=== PATIENT | male | born 1950 | race Caucasian/White ===

== ENCOUNTER 2017-12-29 00:49 | Inpatient (IN) | payer BC, MEDICARE ==
[2017-12-29 02:00] LABS: #Eosinphils 0.1 thou/uL (0.0-0.7); #Lymphocytes 1.5 thou/uL (1.20-3.40); #Monocytes 0.9 thou/uL (0.11-0.59); #Neutrophils 7.3 thou/uL (1.40-6.50); %Basophils 0.1 % (0.0-1.0); %Eosinophils 0.8 % (0.0-10.0); %Lymphocytes 15.2 % (21.0-51.0); %Monocytes 8.9 % (0.0-10.0); Mean Corpuscular HGB CONC 34.7 g/dL (32.0-36.0); Mean Corpuscular Hemoglobin 31.4 pg (27.0-31.0); Mean Corpuscular Volume 90.4 fL (78.0-98.0); Mean Platelet Volume 5.6 fL (7.4-10.4); Platelet Count 317 thou/uL (130-400); RBC Distribution Width 14.5 % (11.5-14.5); Red Blood Cell (RBC) Count 3.17 mill/uL (4.70-6.10); White Blood Cell (WBC) Count 9.8 thou/uL (4.8-10.8)
[2017-12-29] MEDS ORDERED: Morphine 4 MG/ML VIAL ONE (02:12)
[2017-12-29] MEDS ORDERED: Ondansetron HCl/PF 4 MG/2 ML Vial ONE ×2 (02:12→04:32)
[2017-12-29 02:21] LABS: ALT (SGPT) 46 U/L (8-55); AST (SGOT) 33 U/L (5-34); Albumin 2.7 g/dL (3.4-4.8); Alkaline Phosphatase 178 U/L (40-150); Anion Gap 14 mmol/L (10-20); BUN (Urea Nitrogen) 17 mg/dL (8.4-25.7); Bilirubin, Total 0.5 mg/dL (0.2-1.2); CK (CPK) 17 U/L (30-200); Calc. Creatinine Clearance 0 mL/min (70-130); Calcium 8.9 mg/dL (7.8-10.44); Carbon Dioxide 26 mmol/L (23-31); Chloride 96 mmol/L (98-107); Estimated GFR-MDRD Greater than 90; Globulin 3.1 g/dL (2.4-3.5); Glucose 149 mg/dL (80-115); Lipase 18 U/L (8-78); Magnesium 1.4 mg/dL (1.6-2.6); Potassium 3.8 mmol/L (3.5-5.1); Protein, Total 5.8 g/dL (5.8-8.1); Sodium 132 mmol/L (136-145)
[2017-12-29 02:23] LABS: CKMB 1.8 ng/mL (0-6.6)
[2017-12-29] MEDS ORDERED: Magnesium Sulfate 2 GM in Sodium Chloride 0.9% 100 ML IVPB SCH (04:00)
[2017-12-29 04:19] LABS: Bilirubin Negative (Negative); Blood, Urine Negative (Negative); Clarity CLEAR (Clear); Glucose, Urine (Dipstick) 100 mg/dL (Negative); Leukocyte Negative (Negative); Nitrite Negative (Negative); Protein, Urine (Dipstick) Trace mg/dL (Neg-Trace); Specific Gravity, Urine 1.012 (1.002-1.036)
[2017-12-29 05:13] VITALS: BMI 22.3
--- NOTE | 2017-12-29 08:41 | RAD ---
CHEST 1 VIEW: HISTORY: A 67-year-old male with a history of weakness, vomiting, and fever. FINDINGS: Postop midline sternotomy and left PICC line in place. Minimal pleural and parenchymal opacity wright es in the right lower lobe and right costophrenic angle region. Minimal rotation to the right. The left chest appears clear. Atherosclerotic changes of the aorta with extensive tortuosity. Increased density in the retrocardiac region, this may, in part, represent ectatic aorta, but the possibility of a hiatal hernia or some other parenchymal process in the medial aspects of the right and left lowe r lobes might be considered as well. Followup PA and lateral chest suggested. IMPRESSION: Minimal pleural and parenchymal opacities in the right base with some blunting of the right costophre calin angle. Increased density to the retrocardiac region medially involving both the right and left r etrocardiac regions, nonspecific. Followup PA and lateral chest is recommended. If this cannot be p erformed, than a followup chest CT scan should probably be considered. Correlate with clinical findi ngs. CODE T POS: JEAN CLAUDE
[2017-12-29] MEDS ORDERED: Ondansetron HCl/PF 4 MG/2 ML Vial IVP PRN (10:40)
[2017-12-29] MEDS ORDERED: Ondansetron ODT 4 MG TAB PO PRN (10:41)
[2017-12-29] MEDS ORDERED: Acetaminophen 325 MG TAB PO PRN (10:41)
[2017-12-29] MEDS ORDERED: Dextrose 50% Abboject 50 ML SYRINGE IVP PRN (18:23)
[2017-12-29] MEDS ORDERED: Dextrose 5% in Water 1,000 ML IV PRN (18:23)
[2017-12-29] MEDS: Ondansetron HCl/PF 4 MG/2 ML Vial IVP PRN (18:34)
[2017-12-29] MEDS: Promethazine HCl 25 MG/ML VIAL SLOW IVP PRN (22:49)
[2017-12-30] MEDS: Ondansetron HCl/PF 4 MG/2 ML Vial IVP PRN ×2 (03:27→08:31)
[2017-12-30] MEDS: Promethazine HCl 25 MG/ML VIAL SLOW IVP PRN (05:17)
[2017-12-30] MEDS ORDERED: Prevnar 13-Val Conj/PF 0.5 ML SYRINGE IM ONE (09:00)
[2017-12-30] MEDS ORDERED: hydrALAZINE 20 MG/ML VIAL SLOW IVP PRN (09:31)
[2017-12-30 09:51] LABS: #Eosinphils 0.1 thou/uL (0.0-0.7); #Lymphocytes 1.7 thou/uL (1.20-3.40); #Monocytes 0.9 thou/uL (0.11-0.59); #Neutrophils 6.9 thou/uL (1.40-6.50); %Basophils 0.3 % (0.0-1.0); %Eosinophils 0.6 % (0.0-10.0); %Monocytes 9.3 % (0.0-10.0); %Neutrophils 71.8 % (42.0-75.0); Hemoglobin 10.5 g/dL (14.0-18.0); Mean Corpuscular HGB CONC 35.8 g/dL (32.0-36.0); Mean Corpuscular Volume 89.5 fL (78.0-98.0); Mean Platelet Volume 5.5 fL (7.4-10.4); Platelet Count 331 thou/uL (130-400); RBC Distribution Width 14.5 % (11.5-14.5); Red Blood Cell (RBC) Count 3.28 mill/uL (4.70-6.10); White Blood Cell (WBC) Count 9.6 thou/uL (4.8-10.8)
[2017-12-30] MEDS: Lorazepam 2 MG/ML VIAL SLOW IVP PRN ×2 (10:04→17:42)
[2017-12-30 10:09] LABS: Anion Gap 13 mmol/L (10-20); BUN (Urea Nitrogen) 13 mg/dL (8.4-25.7); Calc. Creatinine Clearance 150 mL/min (70-130); Calcium 9.2 mg/dL (7.8-10.44); Carbon Dioxide 28 mmol/L (23-31); Chloride 97 mmol/L (98-107); Estimated GFR-MDRD Greater than 90; Glucose 145 mg/dL (80-115); Potassium 3.6 mmol/L (3.5-5.1); Sodium 134 mmol/L (136-145)
[2017-12-30] MEDS ORDERED: Metoprolol Tartrate 5 MG/5 ML VIAL IVP SCH (10:15)
--- NOTE | 2017-12-30 12:05 | PRG ---
DATE OF SERVICE: 12/30/2017 SUBJECTIVE: The patient is continuing to have significant nausea and some retching. He is not havin g substantial improvement with the current antiemetic medications. OBJECTIVE: VITAL SIGNS: Temperature is 97.7, pulse 82, respirations 20, O2 sat 96% on room air, BP ranging from 158/88 to 184/117. GENERAL APPEARANCE: The patient is awake and alert. He appears slightly erythematous and flushed. He is conversant. HEENT: Pupils are slightly constricted. He has no OP lesions. He does have a bit of white plaquing on the tongue. HEART: Regular rate and rhythm without murmurs, gallops, or rubs. There is a left neck spit stoma t hat is full of some air. LUNGS: Clear bilaterally. ABDOMEN: Reveals healing incisional scars with intact NG tube and G-tube, and these sites look gener ally healthy. There are some bowel sounds present. EXTREMITIES: Warm and dry with trace edema, but palpable pulses. LABORATORY DATA: Blood sugars ranging from 124-146. IMPRESSION AND PLAN: 1. Nausea with retching. 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 Ultimately, had an esophagectomy with a left neck spit pouch and a G-tube and J-tube placed. The pat ient had numerous complications including a DVT of the right upper extremity, mediastinal abscess, ri ght empyema, requiring thoracotomy. He has had again multiple surgeries by [facility] and culminating in [place] with Dr. Laurent. Subsequent to that, the patient was trans ferred to [facility] for rehabilitation. He was apparently on vancomycin, meropenem, and myron afungin. The patient was brought back to the hospital here, because of some nausea and retching. Un til this point, he has not responded significantly to the antiemetic therapy. It was noted that the patient cannot take Reglan, because it causes some altered mental status. He has been using Zofran a nd Phenergan. The patient does report that he had a bowel movement as recently as yesterday, but non e since that time. His feeds were held last night, because he was having some abdominal distention a nd higher residuals. I have discussed the case with the patient, his , and his son-in-law, who h as some medical knowledge and understands the situation. I have spoken to Dr. Plascencia, who is the surgeon covering for Dr. Laurent. It was very clear that she is only covering but does not perform ma ny of these surgeries herself, but was very helpful in helping establish the patient's background inf ormation. She, ultimately, agreed with the current plan of obtaining a CT chest, abdomen, and pelvis . She asked that to reach back out to her once the results of that were known. She indicated that i t is possible that Dr. Laurent might want to have the patient back in [place] and the family has made it very clear that any surgery that would be indicated would be performed in [place]. I believe that is a nonissue as it is unlikely anyone here would want to get involved in such a complex surgical case. So, for now, we will continue with some IV fluids and hold the feeds and get the CT chest, abdomen, and pelvis. 2. Possible pneumonia. The patient had some hazy infiltrates in the retrocardiac space on his initi al x-ray. He has had significant thoracic issues including empyema in the past related to this. The refore, there may be some residual scar tissue. Hopefully, the CT will help establish that for us. 3. History of right upper extremity deep vein thrombosis. The patient was reportedly on some Loveno x. This was related to a PICC line in the right upper extremity. They did indicate that he was actu ally on Eliquis prior to all of these complications related to his surgery and that it was there more for a cardiac-related issue. For now, I am going to hold off on any anticoagulation until we can ge t some results of these imaging studies to ensure that there is not a leak or problem that might requ joseph surgical intervention. 4. History of severe coronary artery disease with multiple interventions and stents. Patient was pr eviously on Coreg and Eliquis. Presently, I am concerned that we do not know what is going on with t he gut, so I am trying to avoid giving any medications intraorally until we know more. He may need s ome IV beta velma. 5. History of diabetes mellitus. Blood sugars have been very well controlled. 6. Mild hyponatremia. Continue to monitor. 7. ID. The patient was on vancomycin, meropenem, and micafungin for apparent sepsis and possibly re lated to some mediastinitis. It is not clear at this point. Dr. Plascencia has offered to fax us th e records from [place] as soon as she can make that happen and hopefully that will help us clarify josse e of this information.
--- NOTE | 2017-12-30 12:42 | RAD ---
SUPINE ABDOMEN: INDICATION: Abdominal distention. Post esophagectomy. FINDINGS: Bowel gas pattern unremarkable. There is scattered stool and gas in the colon. No evidence of small bowel dilatation or obstruction. Evidence of a J tube and other catheters overlies the left abdomen . IMPRESSION: Unremarkable bowel gas pattern. POS: [facility]
[2017-12-30] MEDS ORDERED: ISOVUE-370 76%-LOCM 1 ML ONE (13:41)
--- NOTE | 2017-12-30 15:43 | CT ---
CT CHEST WITH IV CONTRAST CT ABDOMEN AND PELVIS WITH IV CONTRAST: 12/30/17 Multiple axial tomograms obtained through the chest, abdomen and pelvis with IV enhancement. INDICATIONS: Recent esophagectomy. Nausea. No comparison studies. CT CHEST: There are bilateral pleural effusions slightly larger on the right with bibasilar atelectasis. Medias tinum shows evidence of esophagectomy. Nonspecific mediastinal lymph nodes. proximal pulmonary arteri es are opacified with no proximal pulmonary embolus. Thoracic aorta unremarkable with mild atheroscle rotic change. Air seen in anterior chest wall on the left with the sternoclavicular joint may represe nt changes from recent central line puncture. Small fluid collection at this site may also represent small hematoma from recent punctures. IMPRESSION: 1. Bilateral pleural effusions, slightly larger on the right with bibasilar atelectasis. 2. Air and fluid collection anterior chest wall on the left at the sternoclavicular junction pro bably represents changes from prior puncture for central line. There is a left sided PICC line in pl [place]. The tip of this PICC line traverses the SVC and appears to project into the azygos vein. CT ABDOMEN AND PELVIS: Abnormal density in the region of the EG junction consistent with the history of esophagectomy. No gr oss evidence of fluid, hematoma, or abscess. There is a PEG tube in place with the bulb located withi n the gastric fundus. Liver, spleen and pancreas unremarkable. Tiny gallstone in neck of the gallbladder. Small bowel loops are normal caliber. There is a J-tube in place entering via the left abdomen. This bulb appears in adequate position within the jejunum. The kidneys are unremarkable with no hydronephrosis. Small renal cystic lesions. Urinary bladder is m ildly distended. Prostate mildly enlarged indenting the floor of the bladder. Aorta normal caliber. There is an abnormal density in the anterior abdominal wall musculature on the right in the region of the rectus abdominis muscle measuring up to 5 cm consistent with abdominal wall hematoma. IMPRESSION: 1. An anterior abdominal wall hematoma involving the abdominal wall musculature on the right zaire suring up to 5 cm. 2. PEG tube and J-tubes appear in adequate position. 3. Cholelithiasis. 4. No acute intra-abdominal process. POS: [facility]
--- NOTE | 2017-12-30 16:21 | PDOC.EVN ---
Event Note - Event Note Event Note: CT Chest, abdomen and pelvis is negative for leakage or other GI pathology. Discussed with patient's as he is sleeping soundly after the ativan today. He is afebrile and has a normal WBC. Will resume his enteral meds and plan on resuming feeds in the morning. Will not do bolus feeds yet as the reports that seem to trigger some of his symptoms. Will get our pediatric speech therapist involved. Continue the PRN ativan for now. Will stop the zofran and give the IV diflucan for what looks like some oral thrush. Possible that he has some sub -pharyngeal thrush, above the pouch. Unlikely, but that could be triggering some nausea.
[2017-12-30] MEDS ORDERED: Fluconazole In NaCl,Iso-Osm 100 MG in Admixture Fee 1 EACH IVPB SCH (17:15)
[2017-12-30] MEDS: Nystatin 500,000 UNITS/5 ML UDCUP SSW SCH ×2 (17:32→20:59)
[2017-12-30] MEDS: Furosemide 20 MG TAB PER TUBE SCH (20:55)
[2017-12-30] MEDS: Apixaban 5 MG TAB PER TUBE SCH (20:55)
[2017-12-30] MEDS: Carvedilol 25 MG TAB PER TUBE SCH (20:56)
[2017-12-30] MEDS ORDERED: Atorvastatin Calcium 40 MG TAB PER TUBE SCH (21:00)
[2017-12-31 04:25] LABS: #Eosinphils 0.2 thou/uL (0.0-0.7); #Lymphocytes 1.8 thou/uL (1.20-3.40); #Monocytes 0.9 thou/uL (0.11-0.59); #Neutrophils 5.2 thou/uL (1.40-6.50); %Basophils 0.5 % (0.0-1.0); %Eosinophils 1.9 % (0.0-10.0); %Lymphocytes 22.1 % (21.0-51.0); %Monocytes 11.1 % (0.0-10.0); %Neutrophils 64.4 % (42.0-75.0); Hemoglobin 9.4 g/dL (14.0-18.0); Mean Corpuscular HGB CONC 34.8 g/dL (32.0-36.0); Mean Corpuscular Hemoglobin 31.4 pg (27.0-31.0); Mean Corpuscular Volume 90.3 fL (78.0-98.0); Mean Platelet Volume 5.7 fL (7.4-10.4); Platelet Count 299 thou/uL (130-400); RBC Distribution Width 14.9 % (11.5-14.5)
[2017-12-31 04:50] LABS: Anion Gap 9 mmol/L (10-20); BUN (Urea Nitrogen) 11 mg/dL (8.4-25.7); Calc. Creatinine Clearance 162 mL/min (70-130); Calcium 8.7 mg/dL (7.8-10.44); Carbon Dioxide 31 mmol/L (23-31); Chloride 96 mmol/L (98-107); Estimated GFR-MDRD Greater than 90; Glucose 96 mg/dL (80-115); Potassium 3.3 mmol/L (3.5-5.1); Sodium 133 mmol/L (136-145)
[2017-12-31] MEDS: Fluconazole In NaCl,Iso-Osm 100 MG in Admixture Fee 1 EACH IVPB SCH (08:35)
[2017-12-31] MEDS: Nystatin 500,000 UNITS/5 ML UDCUP SSW SCH ×4 (08:38→20:14)
[2017-12-31] MEDS: Polyethylene Glycol 3350 17 GM Packet PER TUBE SCH (08:38)
[2017-12-31] MEDS: Carvedilol 25 MG TAB PER TUBE SCH ×2 (08:38→20:17)
[2017-12-31] MEDS: FLUoxetine HCl 20 MG CAP PER TUBE SCH (08:39)
[2017-12-31] MEDS: Furosemide 20 MG TAB PER TUBE SCH ×2 (08:39→20:14)
[2017-12-31] MEDS ORDERED: Fleet Enema 133 ML BOT PR PRN (08:53)
[2017-12-31] MEDS ORDERED: Potassium Chloride 40 MEQ in Premix Bag 1 BAG IVPB SCH (09:00)
[2017-12-31] MEDS: Pantoprazole 40 MG VIAL IVP SCH ×2 (09:11→20:14)
[2017-12-31] MEDS: Sodium Chloride 0.45% 1,000 ML IV SCH ×2 (09:15→23:41)
--- NOTE | 2017-12-31 09:17 | PDOC.PN ---
- Subjective Encounter Start Date: 12/31/17 Encounter Start Time: 09:00 Feels a little better today. Not nauseated, but "queezy". No BM - Objective Vital Signs & Weight: Vital Signs (12 hours) Temp Pulse Resp BP Pulse Ox 12/31/17 07:28 97.7 F 76 16 169/82 H 96 Weight Admit Weight 188 lb 4.8 oz Weight 188 lb 4.8 oz I&O: 12/30/17 12/31/17 01/01/18 06:59 06:59 06:59 Intake Total 730 Output Total 1200 Balance -470 Result Diagrams: 12/31/17 03:52 12/31/17 03:52 Additional Labs: Accuchecks 12/31/17 12/30/17 12/30/17 06:18 23:43 17:28 POC Glucose 98 121 H 115 H 12/30/17 11:31 POC Glucose 152 H Phys Exam - Physical Examination Constitutional: NAD Left neck esophageal "spit" stoma. Respiratory: no wheezing, no rales, no rhonchi, clear to auscultation bilateral Cardiovascular: RRR, no significant murmur, no rub Gastrointestinal: soft, non-tender, no distention, positive bowel sounds G and J tubes in place. Musculoskeletal: no edema Neurological: non-focal Dx/Plan (1) Nausea Code(s): R11.0 - NAUSEA Status: Acute (2) H/O esophagectomy Code(s): Z98.890 - OTHER SPECIFIED POSTPROCEDURAL STATES; Z90.49 - ACQUIRED ABSENCE OF OTHER SPECIFIED PARTS OF DIGESTIVE TRACT Status: Acute (3) Thrush Code(s): B37.0 - CANDIDAL STOMATITIS Status: Acute (4) Pleural effusion Code(s): J90 - PLEURAL EFFUSION, NOT ELSEWHERE CLASSIFIED Status: Acute (5) DVT (deep venous thrombosis) Code(s): I82.409 - ACUTE EMBOLISM AND THOMBOS UNSP DEEP VN UNSP LOWER EXTREMITY Status: Acute (6) Hypertension Code(s): I10 - ESSENTIAL (PRIMARY) HYPERTENSION Status: Acute (7) Diabetes Code(s): E11.9 - TYPE 2 DIABETES MELLITUS WITHOUT COMPLICATIONS Status: Acute (8) Hypokalemia Code(s): E87.6 - HYPOKALEMIA Status: Acute - Plan * Massively complicated history. Has had multiple surgeries culminating with esophagectomy with spit stoma in the neck, mediastinital abscess, polymicrobial empyema. Sent to rehab on J tube feeds. Developed nausea. Slightly better today. Continue with ativan at a lower dose so as not to sedate him as much. Hold feeds until he is a little better. Will consult nutrition to help resume the feeds. Will give him his usual miralax. If not helpful, use fleets enema. CT yesterday with no leakage or obstruction. Resumed PEG meds. Resumed the Eliquis for RUE DVT. Give some IVF. Replace potassium.
[2017-12-31] MEDS: Lorazepam 2 MG/ML VIAL SLOW IVP PRN ×3 (09:24→23:38)
--- NOTE | 2017-12-31 09:26 | HP ---
LOCAL PRIMARY CARE PHYSICIAN: Dr. Pola Asif. SURGEON: Local surgeon is over at [facility]. PRIMARY POWER SYSTEM ENGINEER: in the [place] area. CHIEF COMPLAINT: Nausea and vomiting. HISTORY OF PRESENT ILLNESS: Mr. Patten is a pleasant 67-year-old male with a complicated recent past medical history, who presents to the emergency department from [facility] for nausea without v omiting, but dry heaves for the last 24 hours or so, starting around 00:30. The patient was brought via EMS from [facility] to the emergency department. Only recent changes to his medicine regim en was a change from chronic tube feeds via a G-tube to bolus feeds about 2 days prior to admission. The patient has a recent surgical history that is complicated. He underwent a fundoplication-type hi atal hernia repair on 09/09/2017. He seemed to do well postoperatively on discharge, but on 10/13, christiano sanders developed a dehiscence and infection and had to be readmitted. They attempted laparoscopic repair x2 at [facility], and subsequently, transferred the patient to [place] to see a specialist in the se type of problems. At that point in time, he had some ischemia to the gastric body and underwent a partial gastrectomy and esophagectomy and was in [place], 10/20 to 10/24 for this procedure. He was subsequently transferred back to [facility] here in [place], 10/24-10/30, and worsened. He was subsequently life flighted on 10/30 to [place] for the gastrectomy procedure. Subsequently, t ransferred back to [facility] on 12/06/2017 on continuous tube feeds. He currently has an esop hagectomy with a spit pouch. He has a J-tube in place and a gastrostomy tube in place, has been havi ng normal bowel movements, and otherwise doing fairly well. He feels very nauseated, but obviously cannot vomit since there is no connection, but does have the d ry heaves associated with that. PAST MEDICAL HISTORY: 1. Gastroesophageal reflux disease. 2. 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 3. Coronary artery disease. 4. Hypertension 5. Hyperlipidemia. 6. New onset diabetes and has been on tube feeds. 7. Depression. PAST SURGICAL HISTORY: Include, 1. Coronary artery bypass grafting x3 vessels in 1998 and 2004. 2. Hernia repair as above and with repairs and esophagectomy. 3. PTCA with PCI and stent placement x3, last one 2-3 years ago. HOME MEDICATIONS: Have been reviewed. Please see the intake sheet. ALLERGIES: REGLAN. FAMILY HISTORY: Negative for clotting or bleeding disorder. No immune dysfunction. SOCIAL HISTORY: Negative for habits x3. He is currently a resident at [facility] getting reha bilitation. REVIEW OF SYSTEMS: A 10-point review of systems was performed and is negative for all systems except as stated as per HPI. PHYSICAL EXAMINATION: VITAL SIGNS: Temperature 98.3, pulse 83, blood pressure 161/109, respiratory rate 18, satting 99% on room air. GENERAL: He is awake. He is alert. He is oriented x3. He is chronic ill-appearing, thin white mal e, appears to be in no acute distress at present. During our interview, he did have a couple of epis odes of dry heaves. HEENT: Normocephalic, atraumatic. Pupils equal and reactive bilaterally. Mucous membranes moist. He has no visible lesion. No thrush. NECK: Supple, without lymphadenopathy, JVD, or thyromegaly. LUNGS: Clear. Good air movement. Symmetrical chest excursion. No prolonged expiratory phase. No wheezes, no rales, no rhonchi. Anterior chest, he does have a spit pouch present that appears to be clean, dry, and intact with some pink-tinged spit, but otherwise looks normal. ABDOMEN: Soft, it is nontender. He has got good bowel sounds in all 4 quadrants. The J-tube and G- tube sites are clean, dry, and intact. SKIN: Warm, moist, and well perfused. EXTREMITIES: Show no cyanosis or clubbing. Trace pedal edema. MUSCULOSKELETAL EXAM: Normal to inspection. Large joints appear normal. There is no evidence of in flammation or palpable effusion. NEUROLOGIC EXAM: Cranial nerves II-XII are grossly intact. He has no focal deficits. He has a norm al affect. He is at 5/5 strength in all 4 extremities and normal speech pattern. LABORATORY DATA: Sodium is 132, potassium 3.8, chloride 96, bicarbonate 26, BUN 17, creatinine 0.51, glucose of 149. Calcium was 8.9. Mag was low at 1.41 and replacement was ordered. Liver function fairly normal with an alkaline phosphatase barely elevated at 178. Total CK is low at 17. His CK-MB was normal at 1.8 and a troponin I was 0.020. Albumin is low at 2.7. CBC showed a white count of 9 .8, hemoglobin 10.5, hematocrit of 28.7, platelet count is 317,000, with a fairly normal differential . Urinalysis was negative. Chest x-ray showed no acute cardiopulmonary disease. ASSESSMENT AND PLAN: 1. Intractable nausea and vomiting, certainly could be secondary to change from continuous to bolus feeds. We will hold off on any imaging as it is not likely to be normal anyways. We will see how he does with the change. If he continues to have some problems or spikes a fever or increase his white count, then we would certainly get his CT scan at that point. Unfortunately, the patient's surgeon is not local, and should there be any complications, then likely we will have to transfer him back to [place]. 2. Gastroesophageal reflux disease. We will continue IV Protonix. 3. History of fungal infection. 4. Coronary artery disease. 5. Hypertension. We will continue his home medications. 6. Depression. We will continue his fluoxetine. 7. Diabetes mellitus. We will continue his regular medications and insulin sliding scale. 8. Hyperlipidemia. 9. Status post esophagectomy and partial gastrectomy as above.
[2017-12-31] MEDS: Apixaban 5 MG TAB PER TUBE SCH (20:14)
[2018-01-01 05:11] LABS: #Eosinphils 0.1 thou/uL (0.0-0.7); #Lymphocytes 2.1 thou/uL (1.20-3.40); #Neutrophils 6.4 thou/uL (1.40-6.50); %Basophils 0.4 % (0.0-1.0); %Eosinophils 1.1 % (0.0-10.0); %Lymphocytes 21.4 % (21.0-51.0); %Monocytes 10.3 % (0.0-10.0); %Neutrophils 66.8 % (42.0-75.0); Hemoglobin 9.6 g/dL (14.0-18.0); Mean Corpuscular HGB CONC 34.5 g/dL (32.0-36.0); Mean Corpuscular Volume 89.8 fL (78.0-98.0); Mean Platelet Volume 5.5 fL (7.4-10.4); Platelet Count 308 thou/uL (130-400); RBC Distribution Width 14.6 % (11.5-14.5); Red Blood Cell (RBC) Count 3.08 mill/uL (4.70-6.10); White Blood Cell (WBC) Count 9.6 thou/uL (4.8-10.8)
[2018-01-01 05:22] LABS: Anion Gap 11 mmol/L (10-20); BUN (Urea Nitrogen) 9 mg/dL (8.4-25.7); Calc. Creatinine Clearance 159 mL/min (70-130); Calcium 8.6 mg/dL (7.8-10.44); Carbon Dioxide 29 mmol/L (23-31); Chloride 93 mmol/L (98-107); Estimated GFR-MDRD Greater than 90; Glucose 84 mg/dL (80-115); Potassium 3.2 mmol/L (3.5-5.1); Sodium 130 mmol/L (136-145)
[2018-01-01] MEDS ORDERED: Potassium Chloride 40 MEQ in Premix Bag 1 BAG IVPB SCH (08:30)
[2018-01-01] MEDS: Pantoprazole 40 MG VIAL IVP SCH ×2 (08:39→20:56)
[2018-01-01] MEDS: Furosemide 20 MG TAB PER TUBE SCH ×2 (08:39→20:55)
[2018-01-01] MEDS: FLUoxetine HCl 20 MG CAP PER TUBE SCH (08:39)
[2018-01-01] MEDS: Carvedilol 25 MG TAB PER TUBE SCH ×2 (08:41→20:55)
[2018-01-01] MEDS: Fluconazole In NaCl,Iso-Osm 100 MG in Admixture Fee 1 EACH IVPB SCH (09:01)
[2018-01-01] MEDS: Nystatin 500,000 UNITS/5 ML UDCUP SSW SCH ×4 (09:11→20:55)
[2018-01-01] MEDS: Polyethylene Glycol 3350 17 GM Packet PER TUBE SCH (10:24)
[2018-01-01] MEDS: Lorazepam 2 MG/ML VIAL SLOW IVP PRN (10:32)
--- NOTE | 2018-01-01 12:57 | PQF ---
DATE: 01-01-18 ATTN: DR. JULIAN MARINELLI Please exercise your independent, professional judgment in responding to the clarification form. Clinical indicators are provided on the bottom of this form for your review Please check appropriate box(s) to clarify if the following diagnosis has been ruled in or ruled out: PNEUMONIA [ ] Ruled in diagnosis [ ] Continue to treat [ ] Resolved [ x] Rule out diagnosis [ ] Other diagnosis [ ] Unable to determine In addition, please specify: Present on Admission (POA): [ ] Yes [ ] No [ ] Unable to determine For continuity of documentation, please document condition throughout progress notes and discharge summary. Thank You. CLINICAL INDICATORS - SIGNS / SYMPTOMS / LABS ER DIAGNOSIS: INTRACTABLE NAUSEA AND VOMITING, RIGHT MIDDLE AND LOWER LOBE PNEUMONIA PN DR. JULIAN MARINELLI 12-30-17: POSSIBLE PNEUMONIA. PN DR. JULIAN MARINELLI 12-31-17: ACUTE PLEURAL EFFUSION RISK FACTORS: ER: COUGHING UP, HX OF SEVERE SEPSIS, DM 2, HYPERLIPIDEMIA, RALES PRESENT, RHONCHI PRESENT TREATMENTS: MAR: IVF CT ABDOMEN/CHEST/PELVIS 12-30-17 (This form is maintained as a part of the permanent medical record) 2014 [email or web address]. All Rights Reserved [email or web address] [email or web address] Office: [phone] [facility] CENTERHugo
[2018-01-01] MEDS: Promethazine HCl 25 MG/ML VIAL SLOW IVP PRN (13:16)
[2018-01-01] MEDS: Sodium Chloride 0.45% 1,000 ML IV SCH (14:38)
[2018-01-01] MEDS: Potassium Chloride 20 MEQ in Premix Bag 1 BAG IVPB SCH ×2 (15:22→17:17)
[2018-01-01] MEDS: Apixaban 5 MG TAB PER TUBE SCH (20:55)
[2018-01-02] MEDS: Sodium Chloride 0.45% 1,000 ML IV SCH ×4 (02:09→21:17)
[2018-01-02 05:58] LABS: #Eosinphils 0.1 thou/uL (0.0-0.7); #Lymphocytes 1.9 thou/uL (1.20-3.40); #Monocytes 1.1 thou/uL (0.11-0.59); #Neutrophils 8.2 thou/uL (1.40-6.50); %Basophils 0.1 % (0.0-1.0); %Eosinophils 1.2 % (0.0-10.0); %Lymphocytes 16.9 % (21.0-51.0); %Monocytes 9.7 % (0.0-10.0); %Neutrophils 72.1 % (42.0-75.0); Hemoglobin 10.5 g/dL (14.0-18.0); Mean Corpuscular HGB CONC 34.4 g/dL (32.0-36.0); Mean Corpuscular Hemoglobin 30.5 pg (27.0-31.0); Mean Corpuscular Volume 88.5 fL (78.0-98.0); Mean Platelet Volume 5.6 fL (7.4-10.4); Platelet Count 339 thou/uL (130-400); RBC Distribution Width 14.7 % (11.5-14.5); Red Blood Cell (RBC) Count 3.46 mill/uL (4.70-6.10); White Blood Cell (WBC) Count 11.3 thou/uL (4.8-10.8)
[2018-01-02 06:10] LABS: Anion Gap 11 mmol/L (10-20); BUN (Urea Nitrogen) 12 mg/dL (8.4-25.7); Calc. Creatinine Clearance 138 mL/min (70-130); Calcium 8.5 mg/dL (7.8-10.44); Carbon Dioxide 29 mmol/L (23-31); Chloride 91 mmol/L (98-107); Estimated GFR-MDRD Greater than 90; Glucose 179 mg/dL (80-115); Potassium 3.1 mmol/L (3.5-5.1); Sodium 128 mmol/L (136-145)
--- NOTE | 2018-01-02 08:44 | PRG ---
DATE OF SERVICE: 01/02/2018. SUBJECTIVE: The patient reports this morning that he feels pressure in his stomach and stating "feel s like my stomach is going to explode." He feels like the continuous feeds were advanced too quickly . The nurse was able to draw for about 60 mL of residual. He reports feeling better after that. He also reports that he is breathing perfectly fine, has no other specific complaints, was borderline n auseated, but again feels better after the residuals removed. OBJECTIVE: VITAL SIGNS: T-max 98.0, pulse 72, respirations 20, O2 sat 96%, blood pressure is 166/91. GENERAL APPEARANCE: Age appropriate male. He is in no distress. He continues to look generally mis erable, which is essentially the way he has appeared since admission. He has a bit of a red flushed face. HEART: Regular, without murmurs. LUNGS: Clear with diminished breath sounds at both bases. Minimal scattered rales at the bases. ABDOMEN: Soft, nontender, nondistended. There are positive bowel sounds. G-tube are in place. EXTREMITIES: Warm and dry without edema. Left upper extremity PICC line looks to be in good conditi on with no erythema. There is a left lower neck, upper chest, spit stoma which appears healthy. LABORATORY DATA: White count 11.3, hemoglobin 10.5, platelets 339. Sodium 128, potassium 3.1, chlor nathan 91, BUN is 12, creatinine 0.61, glucose from 93 up to 179. IMPRESSION AND PLAN: 1. Intractable nausea. This appeared to be related to the bolus feeds. He has had workup that did not reveal any significant pathology, the GI tract or abdomen. We have attempted to reinitiate his f eeds. He was getting continuous feedings with the ramp up; however, he is already feeling some disco mfort with that. I had a long conversation with the dietitian. She agrees that the patient is not l ikely going to tolerate bolus feeds. We will reiterated the need to go very slowly on the ramp up of his continuous feeds to see what he is going to be able to tolerate. Also, she indicated that the feliz pantoja at [facility] also works here p.r.n., so they will be able to easily communicate and coordinate the transition of the enteral feeds at the time of his transition. 2. Mild leukocytosis. There is no evidence of active infection at this time. The patient has an ex tensive medical history, which included a severe right-sided empyema with now some residual effusion. It does not appear that is infected presently. We will recheck in the morning. 3. Hyponatremia. The patient has had significant nausea, which may be causing some syndrome of inap propriate antidiuretic hormone secretion. He is also just now getting back on his feeds within the l ast 24 hours. Therefore, we will recheck this in the morning. 4. Hypokalemia. IV repletion. 5. Thrush. The patient had some evidence of Viktoria stomatitis, which could potentially be infectin g the esophageal stump as well. He is on Diflucan. 6. History of esophagectomy. 7. History of right upper extremity deep venous thrombosis secondary to PICC line that has been jakob getachew. Continue with the Eliquis. 8. Diabetes. Blood sugar is actually up slightly now that he is resumed his feeds, although that is still reasonably well controlled. 9. Hypertension. Pressures are a little bit high, but we will continue to monitor this for now. DISPOSITION: The patient is eager to go back to [facility] and resume his rehabilitation. A ttempting to at least get him on a reasonable feeding regimen start before we send him back. Also, tamela sanders would like to see his white count again tomorrow.
[2018-01-02] MEDS: Promethazine HCl 25 MG/ML VIAL SLOW IVP PRN ×2 (08:56→15:38)
[2018-01-02] MEDS: Carvedilol 25 MG TAB PER TUBE SCH ×2 (08:56→21:14)
[2018-01-02] MEDS: Nystatin 500,000 UNITS/5 ML UDCUP SSW SCH ×4 (08:56→21:14)
[2018-01-02] MEDS: Pantoprazole 40 MG VIAL IVP SCH ×2 (08:56→21:14)
[2018-01-02] MEDS: FLUoxetine HCl 20 MG CAP PER TUBE SCH (08:56)
[2018-01-02] MEDS: Fluconazole In NaCl,Iso-Osm 100 MG in Admixture Fee 1 EACH IVPB SCH (10:28)
[2018-01-02] MEDS: Potassium Chloride 20 MEQ in Premix Bag 1 BAG IVPB SCH ×2 (10:28→12:02)
[2018-01-02] MEDS: Polyethylene Glycol 3350 17 GM Packet PER TUBE SCH (10:29)
[2018-01-02] MEDS: Lorazepam 2 MG/ML VIAL SLOW IVP PRN (15:37)
[2018-01-02] MEDS: Apixaban 5 MG TAB PER TUBE SCH (21:14)
[2018-01-02] MEDS ORDERED: Metoclopramide HCl 10 MG/2 ML VIAL IVP SCH (22:00)
[2018-01-03] MEDS: Sodium Chloride 0.45% 1,000 ML IV SCH ×3 (03:39→18:13)
[2018-01-03] MEDS: Polyethylene Glycol 3350 17 GM Packet PER TUBE SCH (09:22)
[2018-01-03] MEDS: Fluconazole In NaCl,Iso-Osm 100 MG in Admixture Fee 1 EACH IVPB SCH (09:23)
[2018-01-03] MEDS: Nystatin 500,000 UNITS/5 ML UDCUP SSW SCH ×4 (09:23→20:33)
[2018-01-03] MEDS: Carvedilol 25 MG TAB PER TUBE SCH ×2 (09:24→20:34)
[2018-01-03] MEDS: Pantoprazole 40 MG VIAL IVP SCH ×2 (09:24→20:36)
[2018-01-03] MEDS: FLUoxetine HCl 20 MG CAP PER TUBE SCH (09:25)
[2018-01-03] MEDS ORDERED: Metoclopramide 10 MG/10 ML UDCUP PER TUBE SCH ×2 (11:30→17:30)
[2018-01-03 11:40] LABS: #Eosinphils 0.1 thou/uL (0.0-0.7); #Lymphocytes 1.9 thou/uL (1.20-3.40); #Monocytes 0.8 thou/uL (0.11-0.59); #Neutrophils 9.1 thou/uL (1.40-6.50); %Basophils 0.1 % (0.0-1.0); %Eosinophils 1.2 % (0.0-10.0); %Lymphocytes 16.2 % (21.0-51.0); %Monocytes 6.9 % (0.0-10.0); %Neutrophils 75.7 % (42.0-75.0); Mean Corpuscular HGB CONC 34.2 g/dL (32.0-36.0); Mean Corpuscular Hemoglobin 30.4 pg (27.0-31.0); Mean Platelet Volume 5.7 fL (7.4-10.4); Platelet Count 270 thou/uL (130-400); RBC Distribution Width 14.8 % (11.5-14.5)
[2018-01-03 11:59] LABS: Anion Gap 9 mmol/L (10-20); BUN (Urea Nitrogen) 9 mg/dL (8.4-25.7); Calc. Creatinine Clearance 145 mL/min (70-130); Calcium 8.5 mg/dL (7.8-10.44); Carbon Dioxide 27 mmol/L (23-31); Chloride 96 mmol/L (98-107); Estimated GFR-MDRD Greater than 90; Glucose 160 mg/dL (80-115); Potassium 3.4 mmol/L (3.5-5.1); Sodium 129 mmol/L (136-145)
--- NOTE | 2018-01-03 12:44 | EKG ---
Test Reason : Blood Pressure : / mmHG Vent. Rate : 076 BPM Atrial Rate : 076 BPM P-R Int : 182 ms QRS Dur : 112 ms QT Int : 408 ms P-R-T Axes : 051 -40 074 degrees QTc Int : 459 ms Normal sinus rhythm Possible Left atrial enlargement Left axis deviation Possible Anterior infarct , age undetermined Abnormal ECG Confirmed by YOCASTA MONTGOMERY D.O. ([id number]), publication editor MARGARET SCHERER ([id number]) on 01/03/2018 12:44:07 PM Referred By: Confirmed By:YOCASTA MONTGOMERY D.O.
[2018-01-03] MEDS ORDERED: Pancrelipase DR 12000 1 CAP FS PRN (14:59)
[2018-01-03] MEDS ORDERED: Sodium Bicarbonate Tab 325 MG TAB PER TUBE PRN (14:59)
--- NOTE | 2018-01-03 15:50 | PDOC.PN ---
- Subjective Encounter Start Date: 01/03/18 Encounter Start Time: 08:30 Did well overnight with feeding the J-tube. Had recurrence of nausea this morning. - Objective Vital Signs & Weight: Vital Signs (12 hours) Temp Pulse Resp BP Pulse Ox 01/03/18 11:29 98 F 97 16 154/94 H 98 01/03/18 08:00 97.5 F L 71 16 01/03/18 07:52 97.5 F L 71 16 162/91 H 98 Weight Admit Weight 188 lb 4.8 oz Weight 188 lb 4.8 oz I&O: 01/02/18 01/03/18 01/04/18 06:59 06:59 06:59 Intake Total 1540 605 Output Total 750 550 Balance 790 55 Result Diagrams: 01/03/18 11:26 01/03/18 11:26 Additional Labs: Accuchecks 01/03/18 01/03/18 01/03/18 11:24 05:11 00:38 POC Glucose 166 H 145 H 134 H 01/02/18 16:57 POC Glucose 154 H Phys Exam - Physical Examination Constitutional: NAD Ill appearing. "Spit stoma" left neck base. Respiratory: no wheezing, no rales, no rhonchi, clear to auscultation bilateral Diminished at bases, right greater than left. Cardiovascular: RRR, no significant murmur, no rub Gastrointestinal: soft, non-tender, no distention, positive bowel sounds G and J tubes. Musculoskeletal: no edema sarcopenia Deviation from normal: Flat affect. Dx/Plan (1) Nausea Code(s): R11.0 - NAUSEA Status: Acute Comment: Trying to slowly feed the J tube. Inserting Press Operator had one other option for formula that she believes may be better given his situation. More peptide based. Will try that. Gave one 2.5 mg dose of metoclopramide via NGT today. Seemed to tolerate it. Listed as allergy, but only had a suspected side-effect reaction rather than allergy. His is giving him some crackers and margarette-antonio orally to help stim the gut. (2) H/O esophagectomy Code(s): Z98.890 - OTHER SPECIFIED POSTPROCEDURAL STATES; Z90.49 - ACQUIRED ABSENCE OF OTHER SPECIFIED PARTS OF DIGESTIVE TRACT Status: Acute Comment: G and J tube. Spit stoma. (3) Thrush Code(s): B37.0 - CANDIDAL STOMATITIS Status: Acute Comment: Diflucan (4) Pleural effusion Code(s): J90 - PLEURAL EFFUSION, NOT ELSEWHERE CLASSIFIED Status: Acute Comment: Stable. Hx of severe empyema with thoracotomy drainage previously. (5) DVT (deep venous thrombosis) Code(s): I82.409 - ACUTE EMBOLISM AND THOMBOS UNSP DEEP VN UNSP LOWER EXTREMITY Status: Acute Comment: RLE secondary to prior PICC line. On Eliquis. (6) Hypertension Code(s): I10 - ESSENTIAL (PRIMARY) HYPERTENSION Status: Acute (7) Diabetes Code(s): E11.9 - TYPE 2 DIABETES MELLITUS WITHOUT COMPLICATIONS Status: Acute Comment: monitoring glucose with various feeds. (8) Hypokalemia Code(s): E87.6 - HYPOKALEMIA Status: Acute Comment: Mild. Initiating TPN. Will recheck in am. (9) Hyponatremia Code(s): E87.1 - HYPO-OSMOLALITY AND HYPONATREMIA Status: Acute Comment: Slightly better after some feeds. Nausea may be causing some SIADH. - Plan * Discussed with Dr. Asif last night. Patient is not a good candidate to return there. Discussed with patient and his . [facility] [place]. Looking into [facility]. Talked to Dr. Hensley today [phone]. He is willing to take the patient there once we have established the plan for feeding / TPN and assuming they can manage the TPN there. He believes that would not be a problem.
[2018-01-03] MEDS: Apixaban 5 MG TAB PER TUBE SCH (20:33)
[2018-01-03] MEDS: Furosemide 20 MG TAB PER TUBE SCH (20:33)
[2018-01-03] MEDS: Multivitamins, Adult 10 ML, Multitrace-5 5 ML in D15W-AA 5% with Lytes 2,000 ML IV SCH (21:00)
[2018-01-03] MEDS: Metoclopramide 10 MG/10 ML UDCUP PER TUBE SCH (23:29)
[2018-01-03] MEDS: Insulin Regular 300 UNITS/3 ML VIAL SC PRN (23:40)
[2018-01-04] MEDS: Lorazepam 2 MG/ML VIAL SLOW IVP PRN ×2 (02:11→23:46)
[2018-01-04] MEDS: Furosemide 20 MG TAB PER TUBE SCH ×4 (03:51→21:03)
[2018-01-04 04:55] LABS: #Eosinphils 0.1 thou/uL (0.0-0.7); #Lymphocytes 1.8 thou/uL (1.20-3.40); #Monocytes 0.9 thou/uL (0.11-0.59); #Neutrophils 5.9 thou/uL (1.40-6.50); %Basophils 0.5 % (0.0-1.0); %Eosinophils 1.6 % (0.0-10.0); %Lymphocytes 20.8 % (21.0-51.0); %Monocytes 9.8 % (0.0-10.0); %Neutrophils 67.3 % (42.0-75.0); Hemoglobin 9.6 g/dL (14.0-18.0); Mean Corpuscular HGB CONC 35.7 g/dL (32.0-36.0); Mean Corpuscular Hemoglobin 31.9 pg (27.0-31.0); Mean Corpuscular Volume 89.2 fL (78.0-98.0); Mean Platelet Volume 5.8 fL (7.4-10.4); Platelet Count 271 thou/uL (130-400); RBC Distribution Width 14.5 % (11.5-14.5); Red Blood Cell (RBC) Count 3.02 mill/uL (4.70-6.10); White Blood Cell (WBC) Count 8.8 thou/uL (4.8-10.8)
[2018-01-04] MEDS: Metoclopramide 10 MG/10 ML UDCUP PER TUBE SCH ×4 (05:06→23:54)
[2018-01-04 05:12] LABS: Anion Gap 7 mmol/L (10-20); BUN (Urea Nitrogen) 11 mg/dL (8.4-25.7); Calc. Creatinine Clearance 150 mL/min (70-130); Calcium 8.3 mg/dL (7.8-10.44); Carbon Dioxide 30 mmol/L (23-31); Chloride 97 mmol/L (98-107); Estimated GFR-MDRD Greater than 90; Glucose 164 mg/dL (80-115); Magnesium 1.3 mg/dL (1.6-2.6); Sodium 131 mmol/L (136-145)
[2018-01-04 05:24] LABS: Potassium 2.9 mmol/L (3.5-5.1)
[2018-01-04] MEDS: Insulin Regular 300 UNITS/3 ML VIAL SC PRN ×2 (06:03→12:17)
[2018-01-04] MEDS: Pantoprazole 40 MG VIAL IVP SCH ×2 (09:01→21:03)
[2018-01-04] MEDS: Carvedilol 25 MG TAB PER TUBE SCH ×2 (09:02→21:02)
[2018-01-04] MEDS: Polyethylene Glycol 3350 17 GM Packet PER TUBE SCH (09:02)
[2018-01-04] MEDS: FLUoxetine HCl 20 MG CAP PER TUBE SCH (09:02)
[2018-01-04] MEDS: Nystatin 500,000 UNITS/5 ML UDCUP SSW SCH ×4 (09:06→21:08)
[2018-01-04] MEDS ORDERED: Magnesium Sulfate 3 GM in Sodium Chloride 0.9% 100 ML IVPB SCH (10:00)
[2018-01-04] MEDS ORDERED: Potassium Chloride 20 MEQ in Premix Bag 1 BAG IVPB SCH ×2 (10:15→15:00)
[2018-01-04] MEDS: Fluconazole In NaCl,Iso-Osm 100 MG in Admixture Fee 1 EACH IVPB SCH (10:26)
--- NOTE | 2018-01-04 14:37 | PDOC.PN ---
- Subjective Encounter Start Date: 01/04/18 Encounter Start Time: 12:30 Subjective: pt up in bed could not tolerate his feed at 20cc/hr - Objective Vital Signs & Weight: Vital Signs (12 hours) Temp Pulse Resp BP Pulse Ox 01/04/18 08:00 97.9 F 67 16 01/04/18 07:56 97.7 F 67 16 167/89 H 99 Weight Admit Weight 188 lb 4.8 oz Weight 188 lb 4.8 oz I&O: 01/03/18 01/04/18 01/05/18 06:59 06:59 06:59 Intake Total 605 2295 Output Total 550 1550 Balance 55 745 Result Diagrams: 01/04/18 03:45 01/04/18 03:45 Additional Labs: Accuchecks 01/04/18 01/04/18 01/03/18 11:23 05:19 23:31 POC Glucose 194 H 183 H 212 H 01/03/18 16:26 POC Glucose 135 H Phys Exam - Physical Examination Neck: no nodes, no JVD, supple, full ROM Respiratory: no wheezing, no rales, no rhonchi, wheezing present, clear to auscultation bilateral Cardiovascular: RRR, no significant murmur, no rub, gallop, irregular Gastrointestinal: soft, non-tender, no distention, positive bowel sounds pt has a g and J tube Dx/Plan (1) Nausea & vomiting Code(s): R11.2 - NAUSEA WITH VOMITING, UNSPECIFIED Status: Acute (2) DVT (deep venous thrombosis) Code(s): I82.409 - ACUTE EMBOLISM AND THOMBOS UNSP DEEP VN UNSP LOWER EXTREMITY Status: Acute Comment: RLE secondary to prior PICC line. On Eliquis. (3) Diabetes Code(s): E11.9 - TYPE 2 DIABETES MELLITUS WITHOUT COMPLICATIONS Status: Acute Comment: monitoring glucose with various feeds. (4) H/O esophagectomy Code(s): Z98.890 - OTHER SPECIFIED POSTPROCEDURAL STATES; Z90.49 - ACQUIRED ABSENCE OF OTHER SPECIFIED PARTS OF DIGESTIVE TRACT Status: Acute Comment: G and J tube. Spit stoma. - Plan will start pt on 15ml/hr and see how he does -: if he does well will then increase it to 20ml in am -: pt on AC for dvt of upper ext. -: will replace electrolytes -: waiting on insurance auth * . Review of Systems - Review of Systems ENT: negative: Ear Pain, Ear Discharge, Nose Pain, Nose Discharge, Nose Congestion, Mouth Pain, Mouth Swelling, Throat Pain, Throat Swelling, Other Respiratory: negative: Cough, Dry, Shortness of Breath, Hemoptysis, SOB with Excertion, Pleuritic Pain, Sputum, Wheezing Cardiovascular: negative: chest pain, palpitations, orthopnea, paroxysmal nocturnal dyspnea, edema, light headedness, other Gastrointestinal: negative: Nausea, Vomiting, Abdominal Pain, Diarrhea, Constipation, Melena, Hematochezia, Other - Medications/Allergies Allergies/Adverse Reactions: Allergies Allergy/AdvReac Type Severity Reaction Status Date / Time metoclopramide [From Reglan] Allergy Verified 12/30/17 09:06 Medications: Current Medications Lipase/Protease/Amylase ([place] [id number]) 1 cap FS .PER PROTOCOL PRN PRN Reason: TUBE OCCLUSION PROTOCOL Apixaban (Eliquis) 5 mg PER TUBE HS [facility] Last Admin: 01/03/18 20:33 Dose: 5 mg Carvedilol (Coreg) 25 mg PER TUBE BID [facility] Last Admin: 01/04/18 09:02 Dose: 25 mg Dextrose/Water (Dextrose 50%) 25 gm IVP PRN PRN PRN Reason: HYPOGLYCEMIA PROTOCOL Fluoxetine HCl (Prozac) 20 mg PER TUBE DAILY [facility] Last Admin: 01/04/18 09:02 Dose: 20 mg Furosemide (Lasix) 20 mg PER TUBE BID [facility] Last Admin: 01/04/18 09:03 Dose: Not Given Glucagon (Glucagon) 1 mg IM PRN PRN PRN Reason: HYPOGLYCEMIA PROTOCOL Hydralazine HCl (Apresoline) 10 mg SLOW IVP Q4H PRN PRN Reason: Hypertension Last Admin: 12/30/17 17:44 Dose: 10 mg Dextrose/Water (D5w) 1,000 mls @ 0 mls/hr IV INF PRN PRN Reason: HYPOGLYCEMIA PROTOCOL Fluconazole/Sodium Chloride 100 mg/ Miscellaneous Medication 50 mls @ 100 mls/ hr IVPB DAILY [facility] Last Admin: 01/04/18 10:26 Dose: 50 mls Multivitamins 10 ml/ Chromium/Copper/Manganese/Seleni/Zn 5 ml/ Amino Acids/ Electrolytes 2,015 mls @ 83.958 mls/hr IV 2200 [facility] Last Admin: 01/03/18 21:00 Dose: 2,015 mls Insulin Human Regular (Humulin R) 0 units SC .MILD SLIDING PRN; Protocol PRN Reason: MILD SLIDING SCALE Last Admin: 01/04/18 12:17 Dose: 2 unit Lorazepam (Ativan) 0.5 mg SLOW IVP Q4H PRN PRN Reason: Nausea/Vomiting Last Admin: 01/04/18 02:11 Dose: 0.5 mg Metoclopramide HCl (Reglan) 5 mg PER TUBE Q6HR [facility] Last Admin: 01/04/18 12:15 Dose: 5 mg Nystatin (Mycostatin) 500,000 units SSW QID [facility] Last Admin: 01/04/18 12:15 Dose: 500,000 units Pantoprazole Sodium (Protonix) 40 mg IVP Q12HR [facility] Last Admin: 01/04/18 09:01 Dose: 40 mg Polyethylene Glycol (Miralax) 17 gm PER TUBE DAILY [facility] Last Admin: 01/04/18 09:02 Dose: 17 gm Sodium Bicarbonate (Bicarbonate, Sodium) 650 mg PER TUBE .PER PROTOCOL PRN PRN Reason: ENTERAL TUBE OCCLUSION Sodium Biphosphate/Sodium Phosphate (Fleet Enema) 133 ml [place] DAILY PRN PRN Reason: Constipation Last Admin: 01/01/18 06:14 Dose: 133 ml Sodium Chloride (Flush - Normal Saline) 10 ml IVF Q12HR [facility] Last Admin: 01/04/18 09:24 Dose: 10 ml Sodium Chloride (Flush - Normal Saline) 10 ml IVF PRN PRN PRN Reason: Saline Flush Last Admin: 12/31/17 09:12 Dose: 10 ml
[2018-01-04] MEDS: Apixaban 5 MG TAB PER TUBE SCH (21:02)
[2018-01-04] MEDS: Multivitamins, Adult 10 ML, Multitrace-5 5 ML in D15W-AA 5% with Lytes 2,000 ML IV SCH (22:52)
[2018-01-05 05:26] LABS: #Eosinphils 0.1 thou/uL (0.0-0.7); #Lymphocytes 2.1 thou/uL (1.20-3.40); #Monocytes 1.1 thou/uL (0.11-0.59); #Neutrophils 6.4 thou/uL (1.40-6.50); %Basophils 0.4 % (0.0-1.0); %Eosinophils 1.5 % (0.0-10.0); %Lymphocytes 21.7 % (21.0-51.0); %Monocytes 10.7 % (0.0-10.0); %Neutrophils 65.8 % (42.0-75.0); Hemoglobin 10.1 g/dL (14.0-18.0); Mean Corpuscular HGB CONC 35.1 g/dL (32.0-36.0); Mean Corpuscular Hemoglobin 31.5 pg (27.0-31.0); Mean Corpuscular Volume 89.6 fL (78.0-98.0); Mean Platelet Volume 5.8 fL (7.4-10.4); Platelet Count 296 thou/uL (130-400); RBC Distribution Width 14.5 % (11.5-14.5); Red Blood Cell (RBC) Count 3.21 mill/uL (4.70-6.10); White Blood Cell (WBC) Count 9.8 thou/uL (4.8-10.8)
[2018-01-05 05:37] LABS: Anion Gap 11 mmol/L (10-20); BUN (Urea Nitrogen) 19 mg/dL (8.4-25.7); Calc. Creatinine Clearance 156 mL/min (70-130); Calcium 8.8 mg/dL (7.8-10.44); Carbon Dioxide 25 mmol/L (23-31); Chloride 97 mmol/L (98-107); Estimated GFR-MDRD Greater than 90; Glucose 141 mg/dL (80-115); Magnesium 1.7 mg/dL (1.6-2.6); Phosphorus 3.6 mg/dL (2.3-4.7); Potassium 3.6 mmol/L (3.5-5.1); Sodium 129 mmol/L (136-145)
[2018-01-05] MEDS: Metoclopramide 10 MG/10 ML UDCUP PER TUBE SCH ×3 (05:56→18:58)
[2018-01-05] MEDS: Carvedilol 25 MG TAB PER TUBE SCH ×2 (08:30→21:40)
[2018-01-05] MEDS: Furosemide 20 MG TAB PER TUBE SCH ×2 (08:31→21:40)
[2018-01-05] MEDS: FLUoxetine HCl 20 MG CAP PER TUBE SCH (08:31)
[2018-01-05] MEDS: Pantoprazole 40 MG VIAL IVP SCH (08:32)
[2018-01-05] MEDS: Nystatin 500,000 UNITS/5 ML UDCUP SSW SCH ×4 (08:32→21:41)
[2018-01-05] MEDS: Polyethylene Glycol 3350 17 GM Packet PER TUBE SCH (08:32)
[2018-01-05] MEDS: Fluconazole In NaCl,Iso-Osm 100 MG in Admixture Fee 1 EACH IVPB SCH (12:00)
[2018-01-05] MEDS: Insulin Regular 300 UNITS/3 ML VIAL SC PRN (12:03)
[2018-01-05] MEDS ORDERED: Clopidogrel Bisulfate 75 MG TAB ONE (12:26)
--- NOTE | 2018-01-05 15:18 | PDOC.PN ---
- Subjective Encounter Start Date: 01/05/18 Encounter Start Time: 11:30 Subjective: pt up in bed has some nausea and complains of burning of his lower abd - Objective Vital Signs & Weight: Vital Signs (12 hours) Temp Pulse Resp BP Pulse Ox 01/05/18 08:00 97.6 F 65 18 98 01/05/18 07:28 97.6 F 65 18 153/85 H 98 Weight Admit Weight 188 lb 4.8 oz Weight 188 lb 4.8 oz I&O: 01/04/18 01/05/18 01/06/18 06:59 06:59 06:59 Intake Total 2295 3165 Output Total 1550 1780 Balance 745 1385 Result Diagrams: 01/05/18 04:03 01/05/18 04:03 Additional Labs: Accuchecks 01/04/18 01/04/18 21:11 16:32 POC Glucose 129 H 161 H Phys Exam - Physical Examination Neck: no nodes, no JVD, supple, full ROM Respiratory: no wheezing, no rales, no rhonchi, wheezing present, clear to auscultation bilateral Cardiovascular: RRR, no significant murmur, no rub, gallop, irregular Gastrointestinal: soft, non-tender, no distention, positive bowel sounds Dx/Plan (1) Nausea & vomiting Code(s): R11.2 - NAUSEA WITH VOMITING, UNSPECIFIED Status: Acute (2) DVT (deep venous thrombosis) Code(s): I82.409 - ACUTE EMBOLISM AND THOMBOS UNSP DEEP VN UNSP LOWER EXTREMITY Status: Acute Comment: RLE secondary to prior PICC line. On Eliquis. (3) Diabetes Code(s): E11.9 - TYPE 2 DIABETES MELLITUS WITHOUT COMPLICATIONS Status: Acute Comment: monitoring glucose with various feeds. (4) H/O esophagectomy Code(s): Z98.890 - OTHER SPECIFIED POSTPROCEDURAL STATES; Z90.49 - ACQUIRED ABSENCE OF OTHER SPECIFIED PARTS OF DIGESTIVE TRACT Status: Acute Comment: G and J tube. Spit stoma. - Plan i beleive pt will always be nauseated given his complex surgery -: spoke with MD from [facility] who wanted gi eval. -: spoke with gi for evaluation for nausea and not been able to tolerate feeds -: pt is at 15ml/hr on his tube feel. He is having stools. pt is on reglan -: will discontinue antifungal and sodium bicarb. * . hyponatremia multiple factors, pt on ssri, will decrease free water flush. Review of Systems - Review of Systems Cardiovascular: negative: chest pain, palpitations, orthopnea, paroxysmal nocturnal dyspnea, edema, light headedness, other Gastrointestinal: Nausea, Abdominal Pain Genitourinary: negative: Dysuria, Frequency, Incontinence, Hematuria, Retention , Other - Medications/Allergies Allergies/Adverse Reactions: Allergies Allergy/AdvReac Type Severity Reaction Status Date / Time metoclopramide [From Reglan] Allergy Verified 12/30/17 09:06 Medications: Current Medications Lipase/Protease/Amylase (Ivon Boyle [id number]) 1 cap FS .PER PROTOCOL PRN PRN Reason: TUBE OCCLUSION PROTOCOL Apixaban (Eliquis) 5 mg PER TUBE HS [facility] Last Admin: 01/04/18 21:02 Dose: 5 mg Aspirin (Ecotrin) 81 mg PO DAILY [facility] Carvedilol (Coreg) 25 mg PER TUBE BID [facility] Last Admin: 01/05/18 08:30 Dose: 25 mg Dextrose/Water (Dextrose 50%) 25 gm IVP PRN PRN PRN Reason: HYPOGLYCEMIA PROTOCOL Fluoxetine HCl (Prozac) 20 mg PER TUBE DAILY [facility] Last Admin: 01/05/18 08:31 Dose: 20 mg Furosemide (Lasix) 20 mg PER TUBE BID [facility] Last Admin: 01/05/18 08:31 Dose: Not Given Glucagon (Glucagon) 1 mg IM PRN PRN PRN Reason: HYPOGLYCEMIA PROTOCOL Hydralazine HCl (Apresoline) 10 mg SLOW IVP Q4H PRN PRN Reason: Hypertension Last Admin: 12/30/17 17:44 Dose: 10 mg Dextrose/Water (D5w) 1,000 mls @ 0 mls/hr IV INF PRN PRN Reason: HYPOGLYCEMIA PROTOCOL Multivitamins 10 ml/ Chromium/Copper/Manganese/Seleni/Zn 5 ml/ Amino Acids/ Electrolytes 2,015 mls @ 83.958 mls/hr IV 2200 [facility] Last Admin: 01/04/18 22:52 Dose: 2,015 mls Insulin Human Regular (Humulin R) 0 units SC .MILD SLIDING PRN; Protocol PRN Reason: MILD SLIDING SCALE Last Admin: 01/05/18 12:03 Dose: 4 unit Lorazepam (Ativan) 0.5 mg SLOW IVP Q4H PRN PRN Reason: Nausea/Vomiting Last Admin: 01/04/18 23:46 Dose: 0.5 mg Metoclopramide HCl (Reglan) 5 mg PER TUBE Q6HR [facility] Last Admin: 01/05/18 11:58 Dose: 5 mg Nystatin (Mycostatin) 500,000 units SSW QID [facility] Last Admin: 01/05/18 12:00 Dose: 500,000 units Pantoprazole Sodium (Protonix) 40 mg PER TUBE DAILY [facility] Polyethylene Glycol (Miralax) 17 gm PER TUBE DAILY [facility] Last Admin: 01/05/18 08:32 Dose: 17 gm Sodium Biphosphate/Sodium Phosphate (Fleet Enema) 133 ml [place] DAILY PRN PRN Reason: Constipation Last Admin: 01/01/18 06:14 Dose: 133 ml Sodium Chloride (Flush - Normal Saline) 10 ml IVF Q12HR [facility] Last Admin: 01/05/18 08:32 Dose: 10 ml Sodium Chloride (Flush - Normal Saline) 10 ml IVF PRN PRN PRN Reason: Saline Flush Last Admin: 12/31/17 09:12 Dose: 10 ml
--- NOTE | 2018-01-05 15:24 | RAD ---
ABDOMEN 1 VIEW: HISTORY: Abdominal pain. Nausea and vomiting. COMPARISON: 12/30/17. FINDINGS: Gas is apparent within the colon. Small bowel gas pattern is nonspecific. Radiopaque feeding cathet ers overlie the abdomen. No other radiopaque foreign bodies. IMPRESSION: Feeding catheters are in place. No significant abnormalities are demonstrated. POS: [facility]
[2018-01-05] MEDS ORDERED: Pantoprazole 40 MG VIAL IVP SCH (21:30)
[2018-01-05] MEDS: Lorazepam 2 MG/ML VIAL SLOW IVP PRN (21:40)
[2018-01-05] MEDS: Apixaban 5 MG TAB PER TUBE SCH (21:40)
[2018-01-05] MEDS: Multivitamins, Adult 10 ML, Multitrace-5 5 ML in D15W-AA 5% with Lytes 2,000 ML IV SCH (22:36)
[2018-01-06] MEDS: Metoclopramide 10 MG/10 ML UDCUP PER TUBE SCH ×4 (00:32→18:13)
--- NOTE | 2018-01-06 02:29 | CON ---
DATE OF CONSULTATION: 01/05/2018 HISTORY OF PRESENT ILLNESS: The patient is a 67-year-old male, who underwent elective Niss en fundoplication at [facility] in 09/2017. 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 Subsequently, he had esophagectomy and esophageal outlet and partial gastrectomy. He has a G-tube and J-tube and has been being fed by that . He was doing well with 80 mL per hour through his J-tube; however, they tried to switch him to rafael us gastric feedings and this is when he started to have problems. He reports he has had intermittent problems with dry heaves and diffuse abdominal pain and bloating, usually related to feeding, but no t all the time. His bowels have been moving normally. He has been losing weight because of the abov e problems. PAST MEDICAL HISTORY: Includes gastroesophageal reflux disease, coronary artery disease, hypertensio n, hyperlipidemia, diabetes mellitus, depression. PAST SURGICAL HISTORY: Includes coronary artery bypass. ALLERGIES: REGLAN. MEDICATIONS: Include MiraLax 17 grams p.o. q. day, Zofran 4 mg p.o. q.6 hours p.r.n., meloxicam 15 m g per tube q. day, furosemide 20 mg p.o. b.i.d., iron 220 mg p.o. q. day, fluoxetine 20 mg p.o. q. da y, esomeprazole 40 mg per tube q. day, Coreg 25 mg per tube b.i.d., atorvastatin 40 mg per tube at be dtime, Eliquis 5 mg per tube at bedtime, Phenergan 25 mg per tube q. day and Diflucan. SOCIAL HISTORY: He does not smoke or drink. FAMILY HISTORY: Negative for GI or liver disease. REVIEW OF SYSTEMS: Constitutional: Positive for weight loss. Negative for fever or chills. Eyes: No blurred vision or double vision. ENT: No sore throat or earaches. Cardiovascular: No chest pa in or palpitations. Pulmonary: No shortness of breath, cough or wheezing. Gastrointestinal: See sharad talavera. Genitourinary: No hematuria or dysuria. Musculoskeletal: No joint pain or muscle weakness. Neurologic: No numbness or seizure activity. PHYSICAL EXAMINATION: GENERAL: Shows a well-developed, well-nourished, white male, in no acute distress. VITAL SIGNS: Temperature 97.5, pulse 72, respiratory rate 16, blood pressure 191/97. HEENT: Unremarkable. NECK: Supple. He has a well-healed surgical scar. CHEST: Shows a spit pouch in the left chest. CARDIOVASCULAR: Regular rate and rhythm. ABDOMEN: Soft, nontender, no organomegaly or masses. He has multiple well-healed surgical scars. H e has a G-tube in the midline and a J-tube in the left upper quadrant. The site seems to be normal w ithout signs of infection. RECTAL: Deferred. EXTREMITIES: Normal. LABORATORY DATA AND IMAGING: Shows a white blood cell count of 9.8, hemoglobin 10.1, hematocrit 28.8 . Chemistry shows sodium 129, chloride 97, creatinine 0.54, glucose 141. Vitamin B12 is 662. Urina lysis is negative. Abdominal x-ray from 12/30/2017 shows unremarkable bowel gas pattern. CT chest, abdomen, and pelvis on 12/30/2017 shows bilateral pleural effusions, bibasilar atelectasis, air and f luid collection anterior chest wall on the left at the sternoclavicular junction, probably represents prior changes from central line or his spit pouch, anterior wall hematoma is noted, PEG tube and J-t ubes are in position, cholelithiasis, no other abnormalities are noted. Abdominal x-ray from 018 shows feeding catheter is in place, but no other abnormalities. ASSESSMENT: 1. A 67-year-old gentleman with complications related to a Pallavi fundoplication including esophagec dickson and partial gastrectomy with esophageal spit pouch and G and J feeding tubes. He seems not tole rate feeding when he went from continuous feeding to bolus feeding. No signs of ongoing infection. 2. Diabetes mellitus. 3. Coronary artery disease. RECOMMENDATIONS: 1. Begin tube feedings and I would split the tube feedings between his G- and J-tube and just do con tinuous infusion. 2. Try to wean from TPN. 3. Proton-pump inhibitor. 4. We will follow with you.
[2018-01-06 04:36] LABS: ALT (SGPT) 20 U/L (8-55); AST (SGOT) 15 U/L (5-34); Albumin 2.5 g/dL (3.4-4.8); Alkaline Phosphatase 109 U/L (40-150); Anion Gap 12 mmol/L (10-20); BUN (Urea Nitrogen) 22 mg/dL (8.4-25.7); Bilirubin, Total 0.4 mg/dL (0.2-1.2); Calc. Creatinine Clearance 150 mL/min (70-130); Calcium 8.5 mg/dL (7.8-10.44); Carbon Dioxide 23 mmol/L (23-31); Chloride 95 mmol/L (98-107); Estimated GFR-MDRD Greater than 90; Globulin 2.7 g/dL (2.4-3.5); Glucose 181 mg/dL (80-115); Magnesium 1.4 mg/dL (1.6-2.6); Phosphorus 3.8 mg/dL (2.3-4.7); Potassium 3.1 mmol/L (3.5-5.1); Protein, Total 5.2 g/dL (5.8-8.1); Sodium 127 mmol/L (136-145)
[2018-01-06] MEDS ORDERED: Pantoprazole 40 MG GRANULES PACKET PER TUBE SCH (09:00)
[2018-01-06] MEDS ORDERED: Aspirin 81 mg Enteric Coated Tablet PO SCH (09:00)
[2018-01-06] MEDS: Carvedilol 25 MG TAB PER TUBE SCH ×2 (09:11→20:52)
[2018-01-06] MEDS: FLUoxetine HCl 20 MG CAP PER TUBE SCH (09:12)
--- NOTE | 2018-01-06 09:15 | PRG ---
DATE OF SERVICE: 01/06/2018 SUBJECTIVE: The patient is feeling some fullness after beginning tube feedings and some nausea. A l layo discussion with the son, who feels that there may be some psychologic overlay to his symptoms. Rita sanders has had no vomiting, no diarrhea. PHYSICAL EXAMINATION: VITAL SIGNS: Temperature 97.7, pulse 68, respiratory rate 16, blood pressure 118/67. CHEST: Clear. CARDIOVASCULAR: Regular rate and rhythm. ABDOMEN: Soft, nontender, without organomegaly or masses. EXTREMITIES: Normal. LABORATORY DATA: Shows a sodium 127, potassium 3.1, creatinine 0.56, glucose 181, magnesium 1.4, alb umin 2.5. ASSESSMENT: 1. Chronic nausea and a feeling of abdominal fullness on tube feedings. 2. Multiple complications after Pallavi fundoplication. 3. Diabetes mellitus. 4. Coronary artery disease. RECOMMENDATIONS: 1. Continue tube feedings via G-tube and J-tube. 2. Wean TPN. 3. Proton pump inhibitor. 4. We will follow with you.
[2018-01-06] MEDS: Furosemide 20 MG TAB PER TUBE SCH ×2 (09:19→13:34)
[2018-01-06] MEDS: Nystatin 500,000 UNITS/5 ML UDCUP SSW SCH ×4 (09:25→20:52)
[2018-01-06] MEDS: Polyethylene Glycol 3350 17 GM Packet PER TUBE SCH (09:27)
[2018-01-06] MEDS: Pantoprazole 40 MG VIAL IVP SCH ×2 (09:52→20:52)
[2018-01-06] MEDS ORDERED: Magnesium Sulfate 2 GM in Sodium Chloride 0.9% 100 ML IVPB SCH (13:00)
[2018-01-06] MEDS ORDERED: Potassium Chloride 20 MEQ/100 ML PREMIX BAG IVPB SCH (13:15)
[2018-01-06] MEDS ORDERED: Activase 2 MG VIAL CATH ONE (13:30)
[2018-01-06 19:18] LABS: Anion Gap 11 mmol/L (10-20); BUN (Urea Nitrogen) 26 mg/dL (8.4-25.7); Calc. Creatinine Clearance 145 mL/min (70-130); Calcium 8.8 mg/dL (7.8-10.44); Carbon Dioxide 26 mmol/L (23-31); Chloride 95 mmol/L (98-107); Estimated GFR-MDRD Greater than 90; Glucose 158 mg/dL (80-115); Potassium 3.9 mmol/L (3.5-5.1); Sodium 128 mmol/L (136-145)
[2018-01-06] MEDS: Apixaban 5 MG TAB PER TUBE SCH (20:52)
--- NOTE | 2018-01-06 22:16 | PDOC.PN ---
- Subjective Encounter Start Date: 01/06/18 Encounter Start Time: 10:30 Subjective: pt feels well today, tolerating his feeds - Objective Vital Signs & Weight: Vital Signs (12 hours) Temp Pulse Resp BP Pulse Ox 01/06/18 20:15 98.0 F 64 12 111/71 100 01/06/18 19:40 98.0 F 64 12 100 Weight Admit Weight 188 lb 4.8 oz Weight 188 lb 4.8 oz I&O: 01/05/18 01/06/18 01/07/18 06:59 06:59 06:59 Intake Total 3165 1446.25 2475 Output Total 1780 1100 550 Balance 1385 346.25 1925 Result Diagrams: 01/05/18 04:03 01/06/18 18:52 Additional Labs: Accuchecks 01/06/18 01/06/18 01/06/18 20:26 16:58 11:24 POC Glucose 144 H 121 H 180 H 01/06/18 01/06/18 01/05/18 05:43 00:26 11:00 POC Glucose 173 H 181 H 174 H Phys Exam - Physical Examination HEENT: PERRLA, moist MMs, sclera anicteric, TM's clear, oral pharynx no lesions , 2+ tonsils Respiratory: no wheezing, no rales, no rhonchi, wheezing present, clear to auscultation bilateral Cardiovascular: RRR, no significant murmur, no rub, gallop, irregular Gastrointestinal: soft, non-tender, no distention, positive bowel sounds g and J tube Dx/Plan (1) Nausea & vomiting Code(s): R11.2 - NAUSEA WITH VOMITING, UNSPECIFIED Status: Acute (2) DVT (deep venous thrombosis) Code(s): I82.409 - ACUTE EMBOLISM AND THOMBOS UNSP DEEP VN UNSP LOWER EXTREMITY Status: Acute Comment: RLE secondary to prior PICC line. On Eliquis. (3) Diabetes Code(s): E11.9 - TYPE 2 DIABETES MELLITUS WITHOUT COMPLICATIONS Status: Acute Comment: monitoring glucose with various feeds. (4) H/O esophagectomy Code(s): Z98.890 - OTHER SPECIFIED POSTPROCEDURAL STATES; Z90.49 - ACQUIRED ABSENCE OF OTHER SPECIFIED PARTS OF DIGESTIVE TRACT Status: Acute Comment: G and J tube. Spit stoma. - Plan pt's tube feeds are getting at goal -: will discontinue tpn tonight -: pt getting feeding in g and J tube having bm -: will start pt on pleasure feeds with regular diet * . Review of Systems - Review of Systems ENT: negative: Ear Pain, Ear Discharge, Nose Pain, Nose Discharge, Nose Congestion, Mouth Pain, Mouth Swelling, Throat Pain, Throat Swelling, Other Respiratory: negative: Cough, Dry, Shortness of Breath, Hemoptysis, SOB with Excertion, Pleuritic Pain, Sputum, Wheezing Cardiovascular: negative: chest pain, palpitations, orthopnea, paroxysmal nocturnal dyspnea, edema, light headedness, other - Medications/Allergies Allergies/Adverse Reactions: Allergies Allergy/AdvReac Type Severity Reaction Status Date / Time metoclopramide [From Reglan] Allergy Verified 12/30/17 09:06 Medications: Current Medications Lipase/Protease/Amylase ([place]von [facility]le [id number]) 1 cap FS .PER PROTOCOL PRN PRN Reason: TUBE OCCLUSION PROTOCOL Apixaban (Eliquis) 5 mg PER TUBE HS [facility] Last Admin: 01/06/18 20:52 Dose: 5 mg Aspirin (Aspirin Chewable) 81 mg PER TUBE DAILY [facility] Carvedilol (Coreg) 25 mg PER TUBE BID [facility] Last Admin: 01/06/18 20:52 Dose: 25 mg Dextrose/Water (Dextrose 50%) 25 gm IVP PRN PRN PRN Reason: HYPOGLYCEMIA PROTOCOL Fluoxetine HCl (Prozac) 20 mg PER TUBE DAILY [facility] Last Admin: 01/06/18 09:12 Dose: 20 mg Furosemide (Lasix) 20 mg PER TUBE 0900,1400 [facility] Last Admin: 01/06/18 13:34 Dose: Not Given Glucagon (Glucagon) 1 mg IM PRN PRN PRN Reason: HYPOGLYCEMIA PROTOCOL Hydralazine HCl (Apresoline) 10 mg SLOW IVP Q4H PRN PRN Reason: Hypertension Last Admin: 12/30/17 17:44 Dose: 10 mg Dextrose/Water (D5w) 1,000 mls @ 0 mls/hr IV INF PRN PRN Reason: HYPOGLYCEMIA PROTOCOL Insulin Human Regular (Humulin R) 0 units SC .MILD SLIDING PRN; Protocol PRN Reason: MILD SLIDING SCALE Last Admin: 01/05/18 12:03 Dose: 4 unit Lorazepam (Ativan) 0.5 mg SLOW IVP Q4H PRN PRN Reason: Nausea/Vomiting Last Admin: 01/05/18 21:40 Dose: 0.5 mg Metoclopramide HCl (Reglan) 5 mg PER TUBE Q6HR [facility] Last Admin: 01/06/18 18:13 Dose: 5 mg Nystatin (Mycostatin) 500,000 units SSW QID [facility] Last Admin: 01/06/18 20:52 Dose: 500,000 units Pantoprazole Sodium (Protonix) 40 mg IVP Q12HR [facility] Last Admin: 01/06/18 20:52 Dose: 40 mg Polyethylene Glycol (Miralax) 17 gm PER TUBE DAILY [facility] Last Admin: 01/06/18 09:27 Dose: Not Given Sodium Biphosphate/Sodium Phosphate (Fleet Enema) 133 ml SC DAILY PRN PRN Reason: Constipation Last Admin: 01/01/18 06:14 Dose: 133 ml Sodium Chloride (Flush - Normal Saline) 10 ml IVF Q12HR [facility] Last Admin: 01/06/18 20:53 Dose: 10 ml Sodium Chloride (Flush - Normal Saline) 10 ml IVF PRN PRN PRN Reason: Saline Flush Last Admin: 01/05/18 21:41 Dose: 10 ml Sodium Chloride (Flush - Normal Saline) 10 ml IV Q12HR [facility] Last Admin: 01/06/18 20:53 Dose: 10 ml
[2018-01-07] MEDS: Metoclopramide 10 MG/10 ML UDCUP PER TUBE SCH ×4 (00:09→18:06)
[2018-01-07] MEDS: Insulin Regular 300 UNITS/3 ML VIAL SC PRN (06:13)
[2018-01-07 06:23] LABS: ALT (SGPT) 22 U/L (8-55); AST (SGOT) 22 U/L (5-34); Albumin 2.5 g/dL (3.4-4.8); Alkaline Phosphatase 121 U/L (40-150); Anion Gap 13 mmol/L (10-20); BUN (Urea Nitrogen) 27 mg/dL (8.4-25.7); Bilirubin, Total 0.4 mg/dL (0.2-1.2); Calc. Creatinine Clearance 143 mL/min (70-130); Calcium 8.2 mg/dL (7.8-10.44); Carbon Dioxide 22 mmol/L (23-31); Chloride 97 mmol/L (98-107); Estimated GFR-MDRD Greater than 90; Globulin 2.7 g/dL (2.4-3.5); Glucose 177 mg/dL (80-115); Magnesium 1.8 mg/dL (1.6-2.6); Phosphorus 2.6 mg/dL (2.3-4.7); Potassium 3.5 mmol/L (3.5-5.1); Protein, Total 5.2 g/dL (5.8-8.1); Sodium 128 mmol/L (136-145)
[2018-01-07] MEDS: Nystatin 500,000 UNITS/5 ML UDCUP SSW SCH ×4 (08:38→21:04)
[2018-01-07] MEDS: Pantoprazole 40 MG VIAL IVP SCH ×2 (08:38→21:05)
[2018-01-07] MEDS: Carvedilol 25 MG TAB PER TUBE SCH ×2 (08:39→21:04)
[2018-01-07] MEDS: Polyethylene Glycol 3350 17 GM Packet PER TUBE SCH (08:39)
[2018-01-07] MEDS: FLUoxetine HCl 20 MG CAP PER TUBE SCH (08:39)
[2018-01-07] MEDS: Furosemide 20 MG TAB PER TUBE SCH ×2 (08:39→13:09)
--- NOTE | 2018-01-07 10:05 | PRG ---
DATE OF SERVICE: 01/07/2018 SUBJECTIVE: The patient is doing well. He is having no nausea or vomiting. Tube feedings are going 40 mL per hour through the G-tube and 40 mL per hour through the J-tube. He is having a little bit of diarrhea and did not take his MiraLax today. His TPN has been stopped. OBJECTIVE: VITAL SIGNS: Temperature is 97.7, pulse 70, respiratory rate 16, blood pressure 110/70. HEENT: Unremarkable. CHEST: Clear. CARDIOVASCULAR: Regular rate and rhythm. ABDOMEN: Soft, nontender, without organomegaly or masses. Tube sites are fine. EXTREMITIES: Normal. LABORATORY DATA: Chemistries show a sodium 128, CO2 of 22, BUN 27, creatinine 0.59, glucose 177, alb umin 2.5. ASSESSMENT: 1. Chronic nausea and feeling of fullness on tube feedings - improved. 2. Multiple complications after a fundoplication. 3. Diabetes mellitus. 4. Coronary artery disease. RECOMMENDATIONS: 1. We would continue continuous infusion tube feedings. 2. Continue proton pump inhibitor. 3. Continue metoclopramide. 4. Stable for discharge from gastrointestinal standpoint.
--- NOTE | 2018-01-07 13:08 | PDOC.PN ---
- Subjective Encounter Start Date: 01/07/18 Encounter Start Time: 10:30 Subjective: pt up in bed has some nausea but has improved. He is able to tolerated his -: feed - Objective Vital Signs & Weight: Vital Signs (12 hours) Temp Pulse Resp BP Pulse Ox 01/07/18 08:38 97.7 F 70 16 99 01/07/18 07:47 97.7 F 70 16 110/70 99 Weight Admit Weight 188 lb 4.8 oz Weight 188 lb 4.8 oz I&O: 01/06/18 01/07/18 01/08/18 06:59 06:59 06:59 Intake Total 1446.25 3495 Output Total 1100 1060 Balance 346.25 2435 Result Diagrams: 01/05/18 04:03 01/07/18 04:24 Additional Labs: Accuchecks 01/07/18 01/07/18 01/07/18 11:46 06:12 00:25 POC Glucose 135 H 193 H 136 H 01/06/18 01/06/18 01/06/18 20:26 16:58 11:24 POC Glucose 144 H 121 H 180 H Phys Exam - Physical Examination Neck: no nodes, no JVD, supple, full ROM Respiratory: no wheezing, no rales, no rhonchi, wheezing present, clear to auscultation bilateral Cardiovascular: RRR, no significant murmur, no rub, gallop, irregular Gastrointestinal: soft, non-tender, no distention, positive bowel sounds g and J tube Dx/Plan (1) Nausea & vomiting Code(s): R11.2 - NAUSEA WITH VOMITING, UNSPECIFIED Status: Acute (2) DVT (deep venous thrombosis) Code(s): I82.409 - ACUTE EMBOLISM AND THOMBOS UNSP DEEP VN UNSP LOWER EXTREMITY Status: Acute Comment: RLE secondary to prior PICC line. On Eliquis. (3) Diabetes Code(s): E11.9 - TYPE 2 DIABETES MELLITUS WITHOUT COMPLICATIONS Status: Acute Comment: monitoring glucose with various feeds. (4) H/O esophagectomy Code(s): Z98.890 - OTHER SPECIFIED POSTPROCEDURAL STATES; Z90.49 - ACQUIRED ABSENCE OF OTHER SPECIFIED PARTS OF DIGESTIVE TRACT Status: Acute Comment: G and J tube. Spit stoma. - Plan pt tolerating his g and j tube feeding at goal. -: he is off tpn -: will replace electrolytes -: updated dr maradiaga about pt's progress. * . Review of Systems - Review of Systems Respiratory: negative: Cough, Dry, Shortness of Breath, Hemoptysis, SOB with Excertion, Pleuritic Pain, Sputum, Wheezing Cardiovascular: negative: chest pain, palpitations, orthopnea, paroxysmal nocturnal dyspnea, edema, light headedness, other Gastrointestinal: Nausea Genitourinary: negative: Dysuria, Frequency, Incontinence, Hematuria, Retention , Other Musculoskeletal: negative: Neck Pain, Shoulder Pain, Arm Pain, Back Pain, Hand Pain, Leg Pain, Foot Pain, Other - Medications/Allergies Allergies/Adverse Reactions: Allergies Allergy/AdvReac Type Severity Reaction Status Date / Time metoclopramide [From Reglan] AdvReac Verified 01/07/18 01:00 Medications: Current Medications Lipase/Protease/Amylase (Ivon Boyle [id number]) 1 cap FS .PER PROTOCOL PRN PRN Reason: TUBE OCCLUSION PROTOCOL Apixaban (Eliquis) 5 mg PER TUBE HS [facility] Last Admin: 01/06/18 20:52 Dose: 5 mg Aspirin (Aspirin Chewable) 81 mg PER TUBE DAILY [facility] Last Admin: 01/07/18 08:39 Dose: 81 mg Carvedilol (Coreg) 25 mg PER TUBE BID [facility] Last Admin: 01/07/18 08:39 Dose: 25 mg Dextrose/Water (Dextrose 50%) 25 gm IVP PRN PRN PRN Reason: HYPOGLYCEMIA PROTOCOL Fluoxetine HCl (Prozac) 20 mg PER TUBE DAILY [facility] Last Admin: 01/07/18 08:39 Dose: 20 mg Furosemide (Lasix) 20 mg PER TUBE 0900,1400 [facility] Last Admin: 01/07/18 08:39 Dose: Not Given Glucagon (Glucagon) 1 mg IM PRN PRN PRN Reason: HYPOGLYCEMIA PROTOCOL Hydralazine HCl (Apresoline) 10 mg SLOW IVP Q4H PRN PRN Reason: Hypertension Last Admin: 12/30/17 17:44 Dose: 10 mg Dextrose/Water (D5w) 1,000 mls @ 0 mls/hr IV INF PRN PRN Reason: HYPOGLYCEMIA PROTOCOL Insulin Human Regular (Humulin R) 0 units SC .MILD SLIDING PRN; Protocol PRN Reason: MILD SLIDING SCALE Last Admin: 01/07/18 06:13 Dose: 2 unit Lorazepam (Ativan) 0.5 mg SLOW IVP Q4H PRN PRN Reason: Nausea/Vomiting Last Admin: 01/05/18 21:40 Dose: 0.5 mg Metoclopramide HCl (Reglan) 5 mg PER TUBE Q6HR [facility] Last Admin: 01/07/18 12:50 Dose: 5 mg Nystatin (Mycostatin) 500,000 units SSW QID [facility] Last Admin: 01/07/18 12:46 Dose: 500,000 units Pantoprazole Sodium (Protonix) 40 mg IVP Q12HR [facility] Last Admin: 01/07/18 08:38 Dose: 40 mg Sodium Biphosphate/Sodium Phosphate (Fleet Enema) 133 ml VT DAILY PRN PRN Reason: Constipation Last Admin: 01/01/18 06:14 Dose: 133 ml Sodium Chloride (Flush - Normal Saline) 10 ml IVF Q12HR [facility] Last Admin: 01/07/18 08:39 Dose: 10 ml Sodium Chloride (Flush - Normal Saline) 10 ml IVF PRN PRN PRN Reason: Saline Flush Last Admin: 01/05/18 21:41 Dose: 10 ml Sodium Chloride (Flush - Normal Saline) 10 ml IV Q12HR [facility] Last Admin: 01/07/18 08:39 Dose: 10 ml
[2018-01-07] MEDS: Apixaban 5 MG TAB PER TUBE SCH (21:05)
[2018-01-07] MEDS: Lorazepam 2 MG/ML VIAL SLOW IVP PRN (22:21)
[2018-01-08] MEDS: Metoclopramide 10 MG/10 ML UDCUP PER TUBE SCH ×3 (00:03→11:35)
[2018-01-08 05:23] LABS: ALT (SGPT) 27 U/L (8-55); AST (SGOT) 27 U/L (5-34); Albumin 2.7 g/dL (3.4-4.8); Alkaline Phosphatase 143 U/L (40-150); Anion Gap 12 mmol/L (10-20); BUN (Urea Nitrogen) 28 mg/dL (8.4-25.7); Bilirubin, Total 0.3 mg/dL (0.2-1.2); Calc. Creatinine Clearance 150 mL/min (70-130); Calcium 8.7 mg/dL (7.8-10.44); Carbon Dioxide 26 mmol/L (23-31); Chloride 100 mmol/L (98-107); Estimated GFR-MDRD Greater than 90; Globulin 2.8 g/dL (2.4-3.5); Glucose 113 mg/dL (80-115); Magnesium 1.6 mg/dL (1.6-2.6); Potassium 3.6 mmol/L (3.5-5.1); Protein, Total 5.5 g/dL (5.8-8.1); Sodium 134 mmol/L (136-145)
[2018-01-08] MEDS: Furosemide 20 MG TAB PER TUBE SCH ×2 (08:19→12:02)
[2018-01-08] MEDS: Carvedilol 25 MG TAB PER TUBE SCH (08:19)
[2018-01-08] MEDS: Nystatin 500,000 UNITS/5 ML UDCUP SSW SCH ×2 (08:19→12:17)
[2018-01-08] MEDS: Pantoprazole 40 MG VIAL IVP SCH (08:19)
[2018-01-08] MEDS: FLUoxetine HCl 20 MG CAP PER TUBE SCH (08:19)
--- NOTE | 2018-01-08 11:28 | PRG ---
DATE OF SERVICE: 01/08/2018. SUBJECTIVE: The patient is doing well. He had multiple bowel movements yesterday. He has had none thus far today. I did discuss with him the possibility of cutting back or discontinuing metocloprami de. OBJECTIVE: VITAL SIGNS: Temperature 98.2, pulse 70, respiratory rate 16, blood pressure 143/81. CHEST: Clear. CARDIOVASCULAR: Regular rate and rhythm. ABDOMEN: Soft, nontender, without organomegaly or masses. LABORATORY DATA: Shows a sodium of 134, BUN 28, creatinine 0.56, albumin of 2.7. ASSESSMENT: 1. Diarrhea - probably a combination of tube feedings and/or Reglan, because MiraLax was recently st opped and there may be some residual still left in his gut. 2. Chronic nausea. 3. Diabetes mellitus. 4. Coronary artery disease. 5. History of esophagectomy and gastrectomy. RECOMMENDATIONS: 1. Tube feedings 40 mL in each J-tube and G-tube. 2. Wean off metoclopramide if diarrhea persists. 3. Could change the tube feedings to iso-osmolar feedings with or without a fiber.
[2018-01-08] MEDS ORDERED: Pancrelipase DR 12000 1 CAP FS PRN (11:54)
[2018-01-08] MEDS ORDERED: Sodium Bicarbonate Tab 325 MG TAB PER TUBE PRN (11:54)
[2018-01-08 15:14] VITALS: BP 136/69; TEMP 97.4
--- NOTE | 2018-01-08 20:14 | DIS ---
DATE OF ADMISSION: 12/31/2017 DATE OF DISCHARGE: 01/08/2018 DISCHARGE DIAGNOSES: 1. Nausea and vomiting secondary to complicated postoperative procedures. 2. Deep venous thrombosis to his right upper arm. 2. Diabetes. 3. History of esophagectomy. HOSPITAL COURSE: The patient is a very unfortunate 67-year-old male who initially was admitted to an outside facility for hiatal hernia repair. Subsequently, the patient had a bile leak at which he thompson d multiple surgeries at outside hospital. The patient's hospital course at the outside facilities wa s more complicated with mediastinitis and also sepsis. Please refer to records that were obtained fr om the outside facility. The patient after all the surgeries was transferred to [facility]. 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 The patient initially was sent out to [facility] for rehabilitation. The patient at the [facility] was receiving feedings throug h his J and the G-tube, but also was getting bolus feedings. This caused the patient to be very naus eated and abdominal bloating. At this time he was admitted to the hospital at [place] for further evaluation. The patient initially was unable to tolerate meals via the J-tube. He was also treated with antifungal and antibiotics while he was in the hospital for concerns because he did have a PICC line. Since he continued to have nausea, there was no source of his nausea. The patient continued also to be treated for DVT of his right upper extremity from the PICC line. When I took over the car e of this patient, the patient has been started on the TPN since he could not tolerate the feedings. The plan initially was to slowly go up on the feedings and to wean off the TPN. The patient had bee n losing significant amount of weight due to not eating. He was getting pleasure feeds; however, not steve is being observed due to the patient having an esophagectomy and most of his food was being empt ied through the ostomy bag. At this time, the patient initially was unable to tolerate feeds. The t ype of feed was changed to see for better tolerance. He was initially on Jevity which was changed to Pivot. Also, the patient was receiving TPN. The patient was becoming more nauseated and was having more abdominal bloating. I did go ahead and consult GI who recommended starting feeds from the G-tu be and the J-tube which we did. He eventually got a goal of 30 mL from the G-tube and 30 mL from the G-tube. That was his goal by Nutrition. Also, his TPN was weaned off. He was taken off the TPN. I did update the rehab doctor in detail about what had been going on. The patient continues to have some loose stools which is most likely attributed to the feeds. Also, he was on Reglan which I have decreased the dose of the Reglan from every 6 to every 8 hours. The patient again is very complex, h as multiple surgical issues. Him and his were asked to follow up with Surgery in [place] for fur ther evaluation and also discontinuing some of his medications. DISCHARGE MEDICATIONS: He will be discharged home with MiraLax 17 grams per tube, Zofran 4 mg q.6 ho urs p.r.n., Lasix 20 mg daily, iron 220 mg daily, fluoxetine 20 mg daily, carvedilol 25 mg b.i.d., at orvastatin 40 mg at bedtime, Eliquis 5 mg at bedtime, Promethazine 25 mg daily, pantoprazole 40 mg b. i.d., metoclopramide 5 q.8h and aspirin 81 mg daily. PHYSICAL EXAMINATION: VITAL SIGNS: Temperature of 98.2, 70, 16, 100% room air, and 136/69. GENERAL: He is awake, alert, oriented. In no apparent distress. CARDIOVASCULAR: S1, S2 present. No murmurs, rubs or gallops. ABDOMEN: Soft, nontender. Bowel sounds are present x2. EXTREMITIES: He does have G and J-tube. LUNGS: Clear to auscultation, rhonchi or wheezes noted. He also has a gastrectomy tube to his left chest wall area. DISCHARGE INSTRUCTIONS: The patient's PICC line has been discontinued. He will be transferred to [facility] bed for rehabilitation. The patient is currently at baseline for his tube feedings. Also, [facility] will continue the free water flushes. His family has been updated. The patient will be on Eliquis very temporarily for the DVT which is only 5 mg at bedtime. The Eliquis was started in [place] and he patient is currently off of all antibiotics and hopefully he will have a good recovery.
--- NOTE | 2018-01-09 13:41 | EKG ---
Test Reason : Blood Pressure : / mmHG Vent. Rate : 068 BPM Atrial Rate : 068 BPM P-R Int : 190 ms QRS Dur : 116 ms QT Int : 410 ms P-R-T Axes : 054 -36 098 degrees QTc Int : 435 ms Normal sinus rhythm Non-specific intra-ventricular conduction delay Left axis deviation Septal infarct , age undetermined cannot be excluded Abnormal ECG Confirmed by JESSE CHOPRA ([id number]) on 01/09/2018 1:40:33 PM Referred By: MIRZA Confirmed By:JESSE CHOPRA
== END 2018-01-08 14:32 | DRG 392 ==
LOC: ERS 00:49 → T4-A 04:53 → OBSVTOIN 04:53
PROVIDERS: ADMIT Internal Medicine; ATTEND Internal Medicine
DX: R11.0 Nausea (principal); I82.621 Acute embolism and thrombosis of deep veins of right upper extremity; E87.1 Hypo-osmolality and hyponatremia; B37.0 Candidal stomatitis; E11.9 Type 2 diabetes mellitus without complications; Z79.899 Other long term (current) drug therapy; K21.9 Gastro-esophageal reflux disease without esophagitis; I25.10 Atherosclerotic heart disease of native coronary artery without angina pectoris; I10 Essential (primary) hypertension; E78.5 Hyperlipidemia, unspecified; F32.9 Major depressive disorder, single episode, unspecified; Z95.1 Presence of aortocoronary bypass graft; Z95.5 Presence of coronary angioplasty implant and graft; Z88.8 Allergy status to other drugs, medicaments and biological substances; R19.7 Diarrhea, unspecified; Z93.1 Gastrostomy status; E87.6 Hypokalemia; Z79.01 Long term (current) use of anticoagulants
CPT/HCPCS: 36415; 36416; 71045; 71260; 74018; 74177; 80048; 80053; 81003; 82550; 82553; 82607; 83690; 83735; 84100; 84484; 85025; 90471; 90670; 93005; 93010; 96365; 96375; 96376; A4216; C9113; G0009; G8978-GP-CM; G8979-GP-CK; G8987-GO-CL; G8988-GO-CJ; J0360; J1450; J1815; J2060; J2270; J2405; J2550; J2997; J3475; J3480; J7050

== ENCOUNTER 2018-01-21 12:12 | Emergency (ER) | payer BC, MEDICARE ==
--- NOTE | 2018-01-22 04:23 | CON ---
DATE OF CONSULTATION: 01/21/2018 REQUESTING PHYSICIAN: . REASON FOR CONSULTATION: Dysphagia and esophageal stricture. HISTORY OF PRESENT ILLNESS: Zhang Patten is a 67-year-old gentleman, who was transferred here to [facility] from his rehab facility with a development of new dysphagia and discomfort over the past couple of days. He has a complicated recent gastrointestinal history. He has been seen by my GI colleague , Dr. Raul Lozano. Evidently, he recently had an unfortunate complication with attempted Pallavi fundo plication for hiatal hernia repair, evidently developed ischemia of the esophagus and stomach and had to undergo partial esophagectomy and partial gastrectomy. He was seen by a thoracic surgeon at [facility] or in [place] in November for this. He underwent a PEG tube placement and this is how he gets his feeds. He had creation of a spit fistula with the proximal esophagus brought down over the anterior chest w all to the left side with any esophagostomy midway down the left chest. He was instructed that he co uld eat or drink normally and he has been doing so for comfort. The food and water just come straigh t out of his spit fistula into an ostomy bag. He gets all of this nutrition through PEG feeds. At a ny rate, he has been doing fine as far as the oral intake was concerned until a couple of days ago, t hen he started noticing some discomfort in the neck and also worsened reflux sensation whenever he ea ts or drinks water now. Sometimes the water does not immediately go through into the bag. He will s ometimes massage the area and water will shoot through into the bag, but this has become somewhat unc omfortable for him, particularly over the past day and prompted his presentation. He has no other sy mptoms. ALLERGIES: REGLAN. MEDICATIONS: Creon, Eliquis, aspirin, Lipitor, Coreg, ferrous sulfate, Prozac, Nystatin swish and sw allow, ondansetron, Protonix, Phenergan. REVIEW OF SYSTEMS: Full review of systems including constitutional, head, eyes, ears, nose, throat, GI, , cardiovascular, respiratory, musculoskeletal, and neurologic systems is negative except as no devon in the HPI. SOCIAL HISTORY: He is nonsmoker, nondrinker. FAMILY HISTORY: Negative for gastrointestinal disease. PAST MEDICAL HISTORY: Gastroesophageal reflux disease, coronary artery disease, hypertension, hyperl ipidemia, diabetes, depression, coronary artery bypass graft x3 vessels in 1998 and 2004, hiatal andres ia repair with complication and eventual esophagectomy with creation of spit fistula and PEG tube paige cement. PHYSICAL EXAMINATION: VITAL SIGNS: Temperature 98.0, pulse 74, blood pressure 140/76, 98% oxygen saturation on room air. GENERAL: This is a 67-year-old gentleman sitting up comfortably in no distress. SKIN: No jaundice, no rashes were palpable. EYES: No scleral icterus. Extraocular movements intact. ENT: Mucous membranes moist, no oral lesions. LYMPH: No submandibular or supraclavicular lymphadenopathy. CHEST: The lungs are clear to auscultation bilaterally. The patient has a spit fistula with esophag ostomy stoma, midway down the left chest wall anteriorly. The stoma appears somewhat stenosed. I ca nnot get the tip of my pinky finger into stoma. Above this, his dilated esophagus can clearly be see n. This is nontender to palpation. HEART: Regular rate and rhythm. ABDOMEN: PEG tube in place. Surgical scars well healed, nontender. No guarding or rebound tenderne ss. EXTREMITIES: No peripheral edema. VESSELS: Radial pulses 2+ bilaterally. NEUROLOGICAL: Cranial nerves II-XII intact bilaterally. No focal deficits. ASSESSMENT AND PLAN: 1. Esophageal stenosis, at the site of his esophagostomy stoma. 2. Dysphagia, secondary to distal esophageal stenosis. I was able to contact the patient's thoracic surgeon at [facility] in [place], Dr. Srinivasa Craig. We dis cussed the situation. At this point, the patient does not have complete obstruction and is able to g et liquid to come through, but it is likely he has food particles stuck above. Distal esophageal az nosis at the esophagostomy site. Dr. Craig informs me that this is fairly common after creation o f a spit fistula and usually due to ischemia at the stoma site. He usually is able to perform an in- office procedure, in which he is able to dilate the stoma. He offered to have the patient seen in [facility] s clinic for this purpose later this week or even possibly tomorrow. I think that would be the best option. There is no need for any attempted endoscopic procedure. I have communicated this with the ER physicians. I would recommend that the patient follow up in Dr. Craig's clinic tomorrow as off ered. There should be no significant increased risk of complications in the meantime. I asked the p atient to be either n.p.o. or just take sips of water in the meantime. Thank you for the consultation. Please call at any time with questions or concerns.
== END 2018-01-21 14:48 | disposition home or self-care (01) ==
LOC: ERS 12:12
DX: R13.10 Dysphagia, unspecified (principal); K21.9 Gastro-esophageal reflux disease without esophagitis; I25.10 Atherosclerotic heart disease of native coronary artery without angina pectoris; I10 Essential (primary) hypertension; E78.5 Hyperlipidemia, unspecified; E11.9 Type 2 diabetes mellitus without complications; F32.9 Major depressive disorder, single episode, unspecified; Z79.899 Other long term (current) drug therapy; Z79.4 Long term (current) use of insulin
CPT/HCPCS: 99284

== ENCOUNTER 2018-02-01 22:10 | Emergency (ER) | payer BC, MEDICARE ==
--- NOTE | 2018-02-01 23:34 | RAD ---
RADIOGRAPH ABDOMEN 1 VIEW: 02/01/18 at 11:11 p.m. HISTORY: 67-year-old male status post PEG tube placement. FINDINGS: Injected contrast material through the PEG tube is present in the lumen of the stomach, in the first and second stages of the duodenum. This PEG tube is at the body of the stomach near midline. Questio nable small amount of spillage of contrast material inferior to the stomach. There is a second tube, perhaps a jejunal tube, looped across the left upper quadrant and midline. IMPRESSION: Intraluminal position of percutaneous gastrostomy tube confirmed. POS: [facility]
== END 2018-02-02 00:14 | disposition home or self-care (01) ==
LOC: ERS 22:10
DX: Z43.1 Encounter for attention to gastrostomy (principal); K21.9 Gastro-esophageal reflux disease without esophagitis; I25.10 Atherosclerotic heart disease of native coronary artery without angina pectoris; I10 Essential (primary) hypertension; E78.5 Hyperlipidemia, unspecified; E11.9 Type 2 diabetes mellitus without complications; F32.9 Major depressive disorder, single episode, unspecified
CPT/HCPCS: 43760; 74018; B4087

== ENCOUNTER 2018-02-02 04:15 | Emergency (ER) | payer BC, MEDICARE | END 2018-02-02 06:13 | disposition home or self-care (01) | LOC: ERS 04:15 | DX: Z43.1 Encounter for attention to gastrostomy (principal); K21.9 Gastro-esophageal reflux disease without esophagitis; I25.10 Atherosclerotic heart disease of native coronary artery without angina pectoris; I10 Essential (primary) hypertension; E78.5 Hyperlipidemia, unspecified; E11.9 Type 2 diabetes mellitus without complications; F32.9 Major depressive disorder, single episode, unspecified; Z79.4 Long term (current) use of insulin; Z79.899 Other long term (current) drug therapy | CPT/HCPCS: 43760; 74018; B4087 ==

== ENCOUNTER 2018-03-16 17:07 | Emergency (ER) | payer BC, MEDICARE ==
--- NOTE | 2018-03-16 19:24 | RAD ---
ABDOMEN ONE VIEW: 03/16/18 HISTORY: Tube placement. COMPARISON: Abdomen radiograph 02/01/18. FINDINGS: Contrast is seen through a gastrostomy tube into the gastric body. IMPRESSION: Contrast seen through a gastrostomy tube into the gastric body. POS: [facility]
== END 2018-03-16 20:12 | disposition home or self-care (01) ==
LOC: ERS 17:07
DX: K94.23 Gastrostomy malfunction (principal); K21.9 Gastro-esophageal reflux disease without esophagitis; I25.10 Atherosclerotic heart disease of native coronary artery without angina pectoris; I10 Essential (primary) hypertension; E78.5 Hyperlipidemia, unspecified; F32.9 Major depressive disorder, single episode, unspecified; Z79.899 Other long term (current) drug therapy
CPT/HCPCS: 43760; 74018; B4087

== ENCOUNTER 2018-03-28 12:26 | Emergency (ER) | payer BC, MEDICARE ==
--- NOTE | 2018-03-28 14:17 | RAD ---
FRONTAL VIEW ABDOMEN: CONTRASTED GASTROINTESTINAL RADIOGRAPH: CLINICAL HISTORY: Dislodgement of gastrostomy. FINDINGS: There is a single radiographic view of the upper abdomen, status post contrast injection, which revea ls contrast opacification of the distal gastric body and proximal small bowel. IMPRESSION: Contrast opacification of the distal stomach and duodenum. POS: [facility]
== END 2018-03-28 14:00 | disposition home or self-care (01) ==
LOC: ERS 12:26
DX: Z43.1 Encounter for attention to gastrostomy (principal); K21.9 Gastro-esophageal reflux disease without esophagitis; I25.10 Atherosclerotic heart disease of native coronary artery without angina pectoris; I10 Essential (primary) hypertension; E78.5 Hyperlipidemia, unspecified; Z79.899 Other long term (current) drug therapy
CPT/HCPCS: 43760; 74018

== ENCOUNTER 2018-04-04 09:56 | Emergency (ER) | payer BC, MEDICARE ==
[2018-04-04] MEDS ORDERED: Morphine 2 MG/ML SYRINGE ONE (11:56)
[2018-04-04] MEDS ORDERED: Lidocaine 1% (PF) 30 ML VIAL ONE (12:12)
[2018-04-04] MEDS ORDERED: Morphine 10 MG/ML VIAL ONE (14:11)
--- NOTE | 2018-04-04 15:31 | RAD ---
ABDOMEN 1 VIEW: HISTORY: PEG tube placement. FINDINGS/IMPRESSION: There is contrast in the PEG tube and the stomach indicating patency and appropriate placement. POS: [facility]
== END 2018-04-04 15:40 | disposition home or self-care (01) ==
LOC: ERS 09:56
DX: K94.23 Gastrostomy malfunction (principal); I10 Essential (primary) hypertension; E78.5 Hyperlipidemia, unspecified; Z79.899 Other long term (current) drug therapy
CPT/HCPCS: 43760; 74018; 96372; B4087; J2001; J2270

== ENCOUNTER 2018-04-24 17:18 | Emergency (ER) | payer BC, MEDICARE | END 2018-04-24 17:39 | disposition home or self-care (01) | LOC: SCSER 17:18 | DX: Z43.1 Encounter for attention to gastrostomy (principal); K21.9 Gastro-esophageal reflux disease without esophagitis; I25.10 Atherosclerotic heart disease of native coronary artery without angina pectoris; I10 Essential (primary) hypertension | CPT/HCPCS: 43760; B4087 ==

== ENCOUNTER 2018-05-26 08:49 | Emergency (ER) | payer BC, MEDICARE ==
--- NOTE | 2018-05-26 11:14 | RAD ---
NICOLLE: Date: 05/26/18 PROVIDED CLINICAL HISTORY: PEG tube placement. FINDINGS: Contrast material administered through patient's percutaneous gastrostomy tube, with contrast materia l conforming to expected distribution of bowel. IMPRESSION: As above. POS: [facility]
== END 2018-05-26 10:54 | disposition home or self-care (01) ==
LOC: ERS 08:49
DX: K94.23 Gastrostomy malfunction (principal); E78.5 Hyperlipidemia, unspecified; F41.9 Anxiety disorder, unspecified; Z79.899 Other long term (current) drug therapy
CPT/HCPCS: 43762; 74018; B4087

== ENCOUNTER 2018-06-25 12:35 | Emergency (ER) | payer BC, MEDICARE | END 2018-06-25 13:42 | disposition home or self-care (01) | LOC: ERS 12:35 | DX: Z43.1 Encounter for attention to gastrostomy (principal); E78.5 Hyperlipidemia, unspecified; F41.9 Anxiety disorder, unspecified; I25.10 Atherosclerotic heart disease of native coronary artery without angina pectoris | CPT/HCPCS: 99282 ==

== ENCOUNTER 2018-12-10 15:40 | Emergency (ER) | payer BC, MEDICARE ==
--- NOTE | 2018-12-10 16:15 | RAD ---
FOUR VIEWS RIGHT KNEE: Indication: Injury, pain. FINDINGS: Mild joint capsular distention is present. There is minute osteophytosis of the right knee. No fractu re or dislocation. Metallic clips are present, medially. IMPRESSION: No acute osseous abnormality of the right knee. POS: [facility]
--- NOTE | 2018-12-10 16:16 | RAD ---
RIGHT ANKLE THREE VIEWS: Indication: Injury, pain. FINDINGS: There is no evidence of acute fracture or dislocation. Mild osteoarthritis is present. There is a mil d degree of soft tissue prominence of the right ankle. IMPRESSION: 1. No acute osseous abnormality. 2. Mild soft tissue prominence. Correlate clinically. POS: [facility]
--- NOTE | 2018-12-10 16:17 | RAD ---
RIGHT FOOT THREE VIEWS: Indication: Injury, pain. FINDINGS: There is soft tissue prominence of the foot, notably at the distal aspect. Lis franc joint is maintai trell. Scattered osteoarthritis is apparent. No acute fracture is visualized. IMPRESSION: Soft tissue prominence, notably at the distal aspect of the right foot. No acute fracture is visualiz ed. POS: [facility]
== END 2018-12-10 16:44 | disposition home or self-care (01) ==
LOC: SCSER 15:40
DX: S96.911A Strain of unspecified muscle and tendon at ankle and foot level, right foot, initial encounter (principal); I25.10 Atherosclerotic heart disease of native coronary artery without angina pectoris; E78.5 Hyperlipidemia, unspecified; F41.9 Anxiety disorder, unspecified; W18.30XA Fall on same level, unspecified, initial encounter

== ENCOUNTER 2019-06-19 07:30 | Observation (INO) | payer BC, MEDICARE ==
--- NOTE | 2019-06-19 08:00 | RAD ---
Exam: Chest one view HISTORY:Chest pain Comparison: 12/30/2027 FINDINGS: Cardiac silhouette:Normal cardiac silhouette. There are sternotomy wires. Aorta: Slight elongation aorta. Pulmonary vessels: Unremarkable Costophrenic angles: Small bilateral pleural effusions LUNGS: Hyperinflation with chronic changes. No mass or consolidation. Pneumothorax: None Osseous abnormalities: None IMPRESSION: 1. Hyperinflation. Chronic changes. 2. Small bilateral pleural effusions.
[2019-06-19 08:27] LABS: #Eosinphils 0.1 thou/uL (0.0-0.7); #Lymphocytes 1.4 thou/uL (1.20-3.40); #Monocytes 0.5 thou/uL (0.11-0.59); #Neutrophils 3.7 thou/uL (1.40-6.50); %Basophils 0.4 % (0.0-1.0); %Eosinophils 1.4 % (0.0-10.0); %Neutrophils 64.2 % (42.0-75.0); Hemoglobin 14.2 g/dL (14.0-18.0); Mean Corpuscular HGB CONC 33.9 g/dL (32.0-36.0); Mean Corpuscular Hemoglobin 33.3 pg (27.0-31.0); Mean Corpuscular Volume 98.4 fL (78.0-98.0); Mean Platelet Volume 9.4 fL (7.4-10.4); Platelet Count 124 thou/uL (130-400); RBC Distribution Width 11.9 % (11.5-14.5); Red Blood Cell (RBC) Count 4.25 mill/uL (4.70-6.10); White Blood Cell (WBC) Count 5.8 thou/uL (4.8-10.8)
[2019-06-19 08:47] LABS: ALT (SGPT) 29 U/L (8-55); AST (SGOT) 33 U/L (5-34); Albumin 3.5 g/dL (3.4-4.8); Alkaline Phosphatase 173 U/L (40-110); Anion Gap 11 mmol/L (10-20); BUN (Urea Nitrogen) 33 mg/dL (8.4-25.7); Bilirubin, Total 0.6 mg/dL (0.2-1.2); Calc. Creatinine Clearance 0 mL/min (70-130); Calcium 8.9 mg/dL (7.8-10.44); Carbon Dioxide 24 mmol/L (23-31); Chloride 105 mmol/L (98-107); Estimated GFR-MDRD Greater than 90; Globulin 2.7 g/dL (2.4-3.5); Glucose 219 mg/dL (83-110); Potassium 4.5 mmol/L (3.5-5.1); Protein, Total 6.2 g/dL (5.8-8.1); Sodium 135 mmol/L (136-145)
[2019-06-19 09:09] LABS: CKMB 1.8 ng/mL (0-6.6)
[2019-06-19] MEDS ORDERED: Aspirin Chewable 81 MG TAB ONE (09:13)
[2019-06-19] MEDS ORDERED: Nitroglycerin 0.4 MG TAB (25 Tab Bottle) PO PRN (11:42)
[2019-06-19 11:46] LABS: Troponin I 0.055 ng/mL (< 0.028)
--- NOTE | 2019-06-19 11:54 | PDOC.FPRHP ---
- History of Present Illness Chief Complaint: L arm tingling History of Present Illness: Pt is a 69 yo male with PMH significant for triple bypass x 2, HLD, RA who presented to the emergency department with L arm tingling. Tingling started this morning lasting 30 minutes. His prior PR's were asymptomatic. He has never felt this pain before. It was not exacerbated or relieved by anything including movement. He was rest he felt the tingling. He denies diaphoresis, N/ V but endorsed lightheadedness. He currently takes aspirin, statin therapy. Denies anti-hypertensives. He is seen by a warp hanger in [place], [place]. He had a triple bypass in 1998, stents placed, a second bypass, and had stents placed again after his second bypass. His last catheterization, stress test was > 2 years ago. Unsure of his last echo. He denies tobacco, drugs, alcohol. His father from an PR. - Allergies/Adverse Reactions Allergies Allergy/AdvReac Type Severity Reaction Status Date / Time No Known Allergies Allergy Verified 01/12/18 23:48 - Home Medications Medication Instructions Recorded Confirmed Type Aspirin Chewable [Aspirin Chewable 81 mg PER TUBE DAILY #30 tab 01/29/18 Rx Tablet] Atorvastatin Calcium [Lipitor] 40 mg PER TUBE HS #30 tab 01/29/18 06/19/19 Rx Ferrous Sulfate [Ferosul] 220 mg PER TUBE DAILY #60 ml 01/29/18 06/19/19 Rx Celecoxib 1 cap PER TUBE HS 06/19/19 06/19/19 History FLUoxetine HCl [Fluoxetine HCl] 40 mg PER TUBE DAILY 06/19/19 06/19/19 History Oseltamivir [Tamiflu] 12.5 mg PER TUBE DAILY 06/19/19 06/19/19 History - History PMHx: diverting esophagectomy, CAD, HLD PSHx: CABG 3 vessels twice FHx: PR - Father Social: denies alcohol, drugs, tobacco. Lives in [place]. - Review of Systems General: denies: fever/chills, weight/appetite/sleep changes Eyes: denies: eye pain, vision changes ENT: denies: nasal congestion, rhinorrhea Respiratory: reports: shortness of breath. denies: cough, congestion Cardiovascular: denies: chest pain, palpitation, edema Gastrointestinal: denies: nausea, vomiting, diarrhea, constipation Genitourinary: denies: incontinence, dysuria Skin: denies: rashes, lesions Musculoskeletal: denies: pain, tenderness Neurological: reports: numbness. denies: syncope, weakness Psychological: denies: anxiety, depression - Vital signs BP: 133/88 HR: 61 RR: 18 Tmax: 97.6 Pox: 99% on RA Wt: 89.4 kg - Physical Exam Constitutional: NAD, awake, alert and oriented Neck: FROM, no JVD Heart: RRR, normal S1/S2, no edema Lungs: CTAB, no respiratory distress, good air movement, no wheezing Abdomen: soft, non-tender, bowel sounds present -Abdomen: G-tube placed w/o surrounding erythema, diverting esophagostomy Neurological: no focal deficit, CN II-XII intact Heme/Lymphatic: no purpura, no petechia Psychiatric: normal mood and affect, good judgment and insight FMR H&P: Results - Labs Result Diagrams: 06/19/19 08:11 06/19/19 08:11 Lab results: WBC 5.8 thou/uL (4.8-10.8) 06/19/19 08:11 Hgb 14.2 g/dL (14.0-18.0) 06/19/19 08:11 Hct 41.8 % (42.0-52.0) L 06/19/19 08:11 MCV 98.4 fL (78.0-98.0) H 06/19/19 08:11 Plt Count 124 thou/uL (130-400) L 06/19/19 08:11 Neutrophils % 64.2 % (42.0-75.0) 06/19/19 08:11 Sodium 135 mmol/L (136-145) L 06/19/19 08:11 Potassium 4.5 mmol/L (3.5-5.1) 06/19/19 08:11 Chloride 105 mmol/L (98-107) 06/19/19 08:11 Carbon Dioxide 24 mmol/L (23-31) 06/19/19 08:11 BUN 33 mg/dL (8.4-25.7) H 06/19/19 08:11 Creatinine 0.75 mg/dL (0.7-1.3) 06/19/19 08:11 Glucose 219 mg/dL (83-110) H 06/19/19 08:11 Calcium 8.9 mg/dL (7.8-10.44) 06/19/19 08:11 Total Bilirubin 0.6 mg/dL (0.2-1.2) 06/19/19 08:11 AST 33 U/L (5-34) 06/19/19 08:11 ALT 29 U/L (8-55) 06/19/19 08:11 Alkaline Phosphatase 173 U/L (40-110) H 06/19/19 08:11 CK-MB (CK-2) 1.8 ng/mL (0-6.6) 06/19/19 08:11 Serum Total Protein 6.2 g/dL (5.8-8.1) 06/19/19 08:11 Albumin 3.5 g/dL (3.4-4.8) 06/19/19 08:11 - EKG Interpretation EKG: NSR, left anterior fascicular block, no ST changes - Radiology Interpretation Chest x-ray Status: image reviewed by me, report reviewed by me Additional comment: Hyperinflation, small pleural effusions FMR H&P: A/P - Problem List (1) Chest pain Current Visit: Yes Status: Acute Code(s): R07.9 - CHEST PAIN, UNSPECIFIED (2) Numbness and tingling in left arm Current Visit: Yes Status: Acute Code(s): R20.0 - ANESTHESIA OF SKIN; R20.2 - PARESTHESIA OF SKIN (3) HLD (hyperlipidemia) Current Visit: Yes Status: Acute Code(s): E78.5 - HYPERLIPIDEMIA, UNSPECIFIED (4) Rheumatoid arthritis Current Visit: Yes Status: Acute Code(s): M06.9 - RHEUMATOID ARTHRITIS, UNSPECIFIED (5) H/O esophagectomy Current Visit: No Status: Chronic Code(s): Z98.890 - OTHER SPECIFIED POSTPROCEDURAL STATES; Z90.49 - ACQUIRED ABSENCE OF OTHER SPECIFIED PARTS OF DIGESTIVE TRACT Comment: G and J tube. Spit stoma. - Plan Pt is a 69 yo male who presents with: # Atypical Chest Pain/L Arm Tingling Strong history of cardiac disease, family hx. He has multiple stents placed, three vessel CABG x 2 w/ stents after. He has not had cardiac imaging in > 2 years. Heart score 5. - trend trops - lipid pending - a1c pending - ASA, statin continued - nitro prn - cardiology consulted; appreciate rec's # HLD - continue statin therapy # Elevated BG - a1c pending # RA - held celebrex # Diverting Esophagostomy - hold tube feeds Fluids: none Diet: held feeds from home VTE: SCD's Code: Full Dispo: < 48 hrs FMR H&P: Upper Level - Pertinent history 69 y/o M PMHx CAD s/p 3vCABG x2 and stents presents to the ED because of L arm tingling. He has an extensive cardiac hx and was asymptomatic for most of his PR's so he wanted to get checked out. Denies SOB, nausea, diaphoresis. He had his last cath > 2 years ago and it was normal. - Pertinent findings Vitals: BP 133/63, HR 47, RR 14, Temp 97.6, O2 sat 95% on RA Gen - alert, oriented, NAD CV - bradycardic, regular rhythm Lungs- CTAB Abd - nondistended, soft, NTTP Labs: Trop 0.047 CXR - hyperinflation, small BL pleural effusions - Plan Date/Time: 06/19/19 0864 I, Poonam Rodriguez MD, PGY-3, have evaluated this patient and agree with findings/ plan as outlined by diversity intern resident. Pertinent changes/additions are listed here. 1. Atypical Chest Pain Heart Score 5. Pt with extensive CV hx including two 3vCABG's and multiple stents. Most recent cath > 2 years ago. Initial trop indeterminate. -Trend trops -Consulted cards for recs of cath vs stress -Aspirin -Statin -Repeat EKG for any new or worsening CP 2. CAD s/p 3vCABG x2 and stents -Plan as above 3. HLD -Check FLP -Statin Other chronic medical problems, see diversity intern note Dispo: Obs on tele LOS: < 48hrs Code status: Full Diet: NPO pending cards recs Addendum - Attending - Attending Attestation Date/Time: 06/19/19 0954 I personally evaluated the patient and discussed the management with Dr. Goldberg I agree with the History, Examination, Assessment and Plan documented above with any addition or exceptions noted below. left arm numbness with extensive history of CAD. patient states he has never chest pain with prior PR. EKG unremarkable. indeterminate x3. Given hx of 2 CABG and stent x3 will consult cardiology to decide stress test vs cath. observation for ACS r/o.
[2019-06-19] MEDS ORDERED: Acetaminophen 325 MG TAB PO PRN (12:10)
[2019-06-19 14:33] LABS: Troponin I 0.058 ng/mL (< 0.028)
[2019-06-19 15:06] LABS: Hemoglobin A1c 6.2 % (4.0-6.0)
[2019-06-19 17:41] LABS: Troponin I 0.053 ng/mL (< 0.028)
[2019-06-19] MEDS ORDERED: Atorvastatin Calcium 40 MG TAB PER TUBE SCH (21:00)
--- NOTE | 2019-06-19 22:31 | CON ---
DATE OF CONSULTATION: 06/19/2019 HISTORY OF PRESENT ILLNESS: The patient is a 69-year-old gentleman with a long history of coronary artery disease, who presented with left arm discomfort. The patient has previously undergone coronary artery bypass surgery x3 in 1998. The patient states subsequently he underwent repeat coronary bypass graft surgery in 2004. The patient states he again had coronary artery bypass surgery x3. The patient states he has never had any further symptoms. He has been noted on several stress test to have evidence of ischemia and has subsequently had placement of several coronary stents since his bypass surgery. The patient never had any type of arm or chest discomfort prior to these placement of the stent. The patient was in his usual state of health when he suddenly felt pain in his left arm. It started in the shoulder and radiated to his mid arm, and there was a tingling sensation in his left hand. This was persistent for approximately 2 hours. The patient eventually came to the emergency room. He denied having any chest discomfort. The pain resolved after he received aspirin. The patient denies any further discomfort. PAST MEDICAL HISTORY: 1. Coronary artery disease. 2. Hypertension. 3. Depression. 4. Anemia. 5. Dyslipidemia. 6. Rheumatoid arthritis. PAST SURGICAL HISTORY: Thyroid surgery, cataract surgery,and esophageal repair. SOCIAL HISTORY: Nonsmoker. FAMILY HISTORY: Positive family history of heart disease. ALLERGIES: NO KNOWN DRUG ALLERGIES. MEDICATIONS: 1. Lipitor 40 daily. 2. Aspirin 81 daily. 3. Celebrex one tab daily. 4. Prozac 40 mg daily. 5. Iron sulfate 225 daily. 6. Tamiflu REVIEW OF SYSTEMS: Ten-point system noticeable for increasing weakness. PHYSICAL EXAMINATION: GENERAL: This is a thin gentleman, in no acute distress. VITAL SIGNS: Blood pressure 133/63. NECK: No jugular venous distention. LUNGS: Clear to auscultation. HEART: Regular rate and rhythm. Normal S1, S2. No murmurs. ABDOMEN: Nondistended. There is an esophageal tube noted. EXTREMITIES: Showed no edema. LABORATORY RESULTS: White blood cell count 5.8, hemoglobin 14.2, hematocrit 41.8, platelets 124. Sodium 135, potassium 4.5, chloride 105, bicarbonate 24, BUN 33, creatinine 0.75, glucose 219. Troponin was 0.047 with an MB of 1.8. EKG revealed him to have normal sinus rhythm, left atrial enlargement, left anterior fascicular block, Q-waves suggestive of previous septal infarct. IMPRESSION: 1. Left arm pain. 2. History of coronary artery bypass graft surgery on two occasions. 3. History of multiple PTCA and stent placed. 4. History of esophageal surgery. 5. Dyslipidemia. 6. Rheumatoid arthritis. This gentleman presented with left arm pain, which may be an anginal equivalent. From a cardiac standpoint, I would recommend stress testing to see if there is evidence of significant ischemia. He has undergone coronary artery bypass surgery twice and has multiple stents placed. We will follow this patient with you through his hospitalization. Job ID: [id number] MTDD
--- NOTE | 2019-06-19 22:38 | CON ---
DATE OF CONSULTATION: 06/19/2019 HISTORY OF PRESENT ILLNESS: The patient is a 69-year-old gentleman, who presents for evaluation of left arm discomfort. The patient has a long history of coronary artery disease. The patient states he underwent coronary artery bypass surgery x3 in 1998. He subsequently underwent a followup coronary artery bypass surgery in 2004. The patient has subsequently been followed by a rn quality in [place]. He denies having any symptoms. The patient has had no chest discomfort. He has undergone several stress tests, which apparently revealed evidence of ischemia and subsequently had placement of three coronary stents. The patient was in his usual state of health when he developed left arm discomfort. This started just under the left shoulder and radiating to his left arm with a tingling sensation in his left hand. The discomfort lasts for approximately 2 hours. It was not associated with chest discomfort. The patient denied becoming dyspneic. The patient has had no further discomfort. PAST MEDICAL HISTORY: 1. Coronary artery disease. 2. Hypertension. 3. Dyslipidemia. 4. Depression. 5. Rheumatoid arthritis. PAST SURGICAL HISTORY: Thyroid surgery, cataract surgery,and esophageal surgery. SOCIAL HISTORY: Nonsmoker. MEDICATIONS: 1. Lipitor 40 at bedtime. 2. Aspirin 81 daily. 3. Celebrex 1 tablet daily. 4. Prozac 40 daily. 5. Iron sulfate 220 daily. 6. Tamiflu 12.5 daily. REVIEW OF SYSTEMS: Ten-point system noticeable for increasing weakness. PHYSICAL EXAMINATION: GENERAL: This is a thin gentleman, in no acute distress. VITAL SIGNS: Blood pressure 133/63. NECK: Showed no jugular venous distention. LUNGS: Clear to auscultation. HEART: Regular rate and rhythm. Normal S1, S2. No murmurs. ABDOMEN: Nondistended with an gastric tube. EXTREMITIES: Showed no edema. VASCULAR: Radial pulse 2+. LABORATORY DATA: White blood cell count 5.8, hemoglobin 14.2, hematocrit 41.8, platelets are 124. Sodium 135, potassium 4.5, chloride 105, bicarbonate 24, BUN 33, creatinine is 0.75, glucose is 219. Troponin is 0.047, MB is 1.8. . EKG revealed normal sinus rhythm with incomplete right bundle branch block, left anterior fascicular block, Q-waves suggestive of possible previous septal infarct. No acute ST-T wave changes. IMPRESSION: 1. Left arm pain. 2. History of coronary artery bypass surgery on two occasions. 3. History of multiple coronary stents. 4. History of GI esophageal surgery. 5. Rheumatoid arthritis. This gentleman presented with 2 hours of left arm discomfort that resolved after he took aspirin. The patient's EKG showed no acute changes. The patient has a long history of coronary artery disease and this certainly could be an anginal equivalent. We would recommend proceeding with stress testing to see if there is evidence of significant ischemia. We will to obtain records from the patient's rn quality. Job ID: [id number] MTDD
[2019-06-20 04:25] LABS: Anion Gap 12 mmol/L (10-20); BUN (Urea Nitrogen) 26 mg/dL (8.4-25.7); Calc. Creatinine Clearance 132 mL/min (70-130); Calcium 8.8 mg/dL (7.8-10.44); Carbon Dioxide 26 mmol/L (23-31); Cardiac Risk 3.3 (Less than 4.5); Chloride 104 mmol/L (98-107); Cholesterol 120 mg/dl (< 200 Desired); Estimated GFR-MDRD Greater than 90; Glucose 60 mg/dL (83-110); HDL Cholesterol 36 mg/dL (>60 Neg Risk); LDL Cholesterol, Calculated 74 mg/dL; Potassium 4.5 mmol/L (3.5-5.1); Sodium 137 mmol/L (136-145); Triglycerides 50 mg/dL (Less than 150)
--- NOTE | 2019-06-20 06:07 | PDOC.FM ---
- Subjective Subjective: Pt is doing well today. He denies chest pain, L arm numbness/tingling. He was seen by cardiology yesterday. He is going for a stress test today. Denies N/V , LE edema. - Objective Vital Signs & Weight: Vital Signs (12 hours) Temp Pulse Resp BP BP Pulse Ox 06/20/19 04:00 97.8 F 54 L 14 111/57 L 98 06/19/19 23:00 98.0 F 55 L 14 137/69 97 06/19/19 20:00 97.6 F 55 L 14 126/58 L 97 Weight Weight 89.584 kg I&O: 06/18/19 06/19/19 06/20/19 06:59 06:59 06:59 Intake Total 480 Balance 480 Result Diagrams: 06/19/19 08:11 06/20/19 03:41 Phys Exam - Physical Examination Constitutional: NAD HEENT: PERRLA Respiratory: no wheezing, no rales, clear to auscultation bilateral Cardiovascular: RRR, no significant murmur Gastrointestinal: soft, non-tender, positive bowel sounds diverting esophaggostomy, G tube placed Musculoskeletal: no edema, pulses present Dx/Plan (1) Chest pain Code(s): R07.9 - CHEST PAIN, UNSPECIFIED Status: Acute (2) Numbness and tingling in left arm Code(s): R20.0 - ANESTHESIA OF SKIN; R20.2 - PARESTHESIA OF SKIN Status: Acute (3) HLD (hyperlipidemia) Code(s): E78.5 - HYPERLIPIDEMIA, UNSPECIFIED Status: Acute (4) Rheumatoid arthritis Code(s): M06.9 - RHEUMATOID ARTHRITIS, UNSPECIFIED Status: Acute (5) H/O esophagectomy Code(s): Z98.890 - OTHER SPECIFIED POSTPROCEDURAL STATES; Z90.49 - ACQUIRED ABSENCE OF OTHER SPECIFIED PARTS OF DIGESTIVE TRACT Status: Chronic (6) Prediabetes Code(s): R73.03 - PREDIABETES Status: Acute - Plan Plan: Pt is a 69 yo male who presents with: # Atypical Chest Pain/L Arm Tingling Strong history of cardiac disease, family hx. He has multiple stents placed, three vessel CABG x 2 w/ stents after. He has not had cardiac imaging in > 2 years. Heart score 5. - trops indeterminate x 4 - lipid at goal - continue statin therapy - a1c 6.2 - ASA, statin continued - nitro prn - cardiology consulted; appreciate rec's - stress test today # HLD - continue statin therapy # RA - held celebrex # Diverting Esophagostomy - hold tube feeds # Pre-diabetes - follow up outpt, do not start medication at this time Fluids: none Diet: held feeds from home VTE: SCD's Code: Full Dispo: < 48 hrs Addendum - Attending - Attending Attestation Date/Time: 06/20/19 4994 I personally evaluated the patient and discussed the management with Dr. Goldberg I agree with the History, Examination, Assessment and Plan documented above with any addition or exceptions noted below. cardiology recommends NM stress. Will await results. If negative, will likely d/ c home.
[2019-06-20] MEDS ORDERED: Aspirin 325 mg Enteric Coated Tablet PO SCH (09:00)
[2019-06-20] MEDS ORDERED: Aspirin Chewable 81 MG TAB PER TUBE SCH (09:00)
[2019-06-20] MEDS ORDERED: Oseltamivir 6 MG/ML ORAL SUSP PER TUBE SCH (09:00)
[2019-06-20] MEDS ORDERED: FLUoxetine HCl 20 MG/5 ML UDCUP PER TUBE SCH (09:00)
[2019-06-20 13:25] VITALS: BMI 23.4
--- NOTE | 2019-06-20 14:19 | NM ---
NUCLEAR MEDICINE CARDIAC MYOCARDIAL PERFUSION SPECT EJECTION FRACTION STUDY WALL MOTION CINE: DATE: 06/20/2019 HISTORY: 69-year-old male with dyslipidemia, coronary artery disease, status post CABG, presents with atypical chest pain. TECHNIQUE: Number of days: 1 Rest study: Technetium 99m-sestamibi (Cardiolite) dose:9.4 mCi Exercise stress: Treadmill Stress study: Technetium 99m-sestamibi (Cardiolite) dose:33.0 mCi FINDINGS: CARDIAC (MYOCARDIAL PERFUSION) SPECT moderate-sized fixed defect involving apex. Small fixed defect anterior wall. Small fixed defect anterolateral wall. No reversible perfusion defect identified. EJECTION FRACTION STUDY Left ventricular EF = 49 % WALL MOTION CINE Septal hypokinesis. Anteroseptal apical hypokinesis. The rest of the left ventricle moves normally. 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 2) no reversible ischemia identified..
[2019-06-20 15:38] VITALS: BP 118/66; TEMP 97.7
--- NOTE | 2019-06-21 14:01 | DIS ---
DATE OF ADMISSION: 06/19/2019 DATE OF DISCHARGE: 06/20/2019 RESIDENT: Iggy Goldberg DO ADMITTING ATTENDING: Gilberto Sewell MD DISCHARGE ATTENDING: Gilberto Sewell MD CONSULTS: Cardiology, Jose Francisco Young MD PROCEDURES: 1. Chest x-ray on 06/19/2019 revealed hyperinflation and chronic changes. Small bilateral pleural effusions. 2. Nuclear stress test on 06/20/2019 revealed anteroseptal apical hypokinesis. The rest of the left ventricle moved normally. There were several infarction/scars in the left ventricular myocardium. There was no reversible ischemia identified. PRIMARY DIAGNOSES: 1. Atypical chest pain. 2. History of coronary artery disease. 3. Status post three vessel coronary artery bypass graft x2. 4. Status post multiple stent placements. 5. Indeterminate troponins. SECONDARY DIAGNOSES: 1. Hyperlipidemia. 2. Rheumatoid arthritis. 3. Diverting esophagostomy. 4. Prediabetes. DISCHARGE MEDICATIONS: Continue; 1. Celecoxib 200 mg per tube at night. 2. Aspirin 81 mg per tube at night. 3. Tylenol 650 mg p.o. q.6 p.r.n. pain per tube. 4. Lipitor 40 mg per tube at night. 5. Ferrous sulfate 300 mg per tube daily. 6. Prozac 40 mg per tube daily. 7. Tamiflu 75 mg per tube daily for total of 10-day treatment. DISCONTINUED MEDICATIONS: None. HISTORY OF PRESENT ILLNESS/HOSPITAL COURSE: Mr. Zhang Patten is a 69-year-old male with past medical history significant for triple bypass x2, hyperlipidemia, RA, stent placement after his most recent triple bypass, who presented with left arm tingling. He states that the tingling is different than his previous TN, his other MIs were asymptomatic. His first TN was in 1998. He states that he had a catheterization, stress test greater than 2 years ago with his art librarian, who is in [place], [place]. He is unsure of his last echocardiogram. He does have family history of coronary artery disease as his father from a myocardial infarction. Due to the patient's heart score of 5 and strong coronary artery disease history, the patient was brought in for a stress test. This revealed no areas of reversible ischemia. Due to this, we discharged the patient with his continued home regimen and to follow up with his art librarian. He should continue the statin therapy and aspirin. His glucose was 6.2. His A1c was 6.2. Of note, the patient did have a hiatal hernia with attempted repair that reverted diverting esophagostomy. We did hold the Celebrex for his rheumatoid arthritis in case he was having acute coronary artery disease. He can continue with Celebrex in the outpatient setting. DISPOSITION: Stable. DISCHARGE INSTRUCTIONS: 1. Location: [facility]. 2. Diet: Heart healthy. 3. Activity as tolerated. 4. Followup: Follow up with his art librarian within a month. 5. Follow up with his primary care physician next week. Job ID: [id number]
== END 2019-06-20 16:53 | disposition home or self-care (01) ==
LOC: ERS 07:30 → 2NO 09:29
PROVIDERS: ADMIT Family Medicine; ATTEND Family Medicine
DX: R07.89 Other chest pain (principal); I25.10 Atherosclerotic heart disease of native coronary artery without angina pectoris; E78.5 Hyperlipidemia, unspecified; M06.9 Rheumatoid arthritis, unspecified; R73.03 Prediabetes; Z79.82 Long term (current) use of aspirin; Z79.899 Other long term (current) drug therapy; Z90.49 Acquired absence of other specified parts of digestive tract; Z95.1 Presence of aortocoronary bypass graft; Z95.5 Presence of coronary angioplasty implant and graft
CPT/HCPCS: 36415; 71045; 78452; 80048; 80053; 80061; 82553; 83036; 84484; 85025; 93005; 93017; A9500; G0378

== ENCOUNTER 2021-10-15 21:48 | Emergency (ER) | payer BC | END 2021-10-15 23:12 | disposition home or self-care (01) | LOC: ERS 21:48 | DX: Z46.59 Encounter for fitting and adjustment of other gastrointestinal appliance and device (principal) | CPT/HCPCS: 74018 ==